=== PATIENT | male | born 1950 | race Caucasian/White ===

== ENCOUNTER 2019-10-10 16:30 | Inpatient (IN) | payer OTHER ==
[~2019-10-10] VITALS: Ht 177.8 cm; Wt 87.7 kg
[~2019-10-10 16:30] MED LIST: FLUV50 PO; METO50 PO; MULVITMIND PO; OMEP20ER PO; VITAMIN D3 PO; VITB100 PO; ZOLP10 PO
[2019-10-10] MEDS ORDERED: ATEN25 PO (16:44)
[2019-10-10] MEDS ORDERED: ZOLP10 PO (16:44)
[2019-10-10] MEDS ORDERED: HYDPAM50 PO (16:44)
[2019-10-10] MEDS ORDERED: OMEPRAZOLE20 MG PO (16:45)
[2019-10-10] MEDS ORDERED: TRAZ50 PO (16:45)
[2019-10-10 17:10] LABS: BASOPHILS ABSOLUTE AUTO 0.06 K/mm3 (0.00-0.23); BASOPHILS PERCENT AUTO 1 % (0-2); EOSINOPHILS ABSOLUTE AUTO 0.14 K/mm3 (0.00-0.68); EOSINOPHILS PERCENT AUTO 1 % (0-6); Hematocrit 43.8 % (37.0-53.0); Hemoglobin 15.6 g/dL (13.5-17.5); IMMATURE GRAN ABSOLUTE AUTO 0.06 K/mm3 (0.00-0.10); IMMATURE GRAN PERCENT AUTO 1 % (0-1); LYMPHOCYTES ABSOLUTE AUTO 3.85 K/mm3 (0.84-5.20); LYMPHOCYTES PERCENT AUTO 39 % (21-46); MONOCYTES PERCENT AUTO 5 % (4-13); Mean Corpuscular HGB 31.2 pg (26.0-34.0); Mean Corpuscular HGB Conc 35.6 g/dL (31.5-36.5); Mean Corpuscular Volume 88 fL (80-100); Mean Platelet Volume 9.9 fL (9.1-12.4); NEUTROPHILS PERCENT AUTO 54 % (41-73); Platelet Count 271 K/mm3 (150-400); RDW Coefficient Variation 12.7 % (11.7-14.2); RDW Standard Deviation 40.8 fL (35.1-46.3); White Blood Cell Count 9.91 K/mm3 (4.00-11.30)
[2019-10-10 17:33] LABS: Alanine Aminotransfer (ALT/SGP 25 U/L (12-78); Albumin, Blood 3.4 g/dL (3.4-5.0); Albumin/Globulin Ratio 0.9 (0.8-1.8); Alk Phos 75 U/L (50-136); Anion Gap 12 mmol/L (6-16); Aspartate Aminotrans (AST/SGOT 27 U/L (12-37); Bilirubin, Total 0.4 mg/dL (0.1-1.0); Blood Urea Nitrogen 11 mg/dL (8-24); Bun/Creatinine Ratio 11.8 (12.0-20.0); CO2, Blood 23 mmol/L (21-32); Calcium, Blood 8.1 mg/dL (8.5-10.1); Chloride, Blood 103 mmol/L (98-108); Creatinine, Blood 0.93 mg/dL (0.60-1.20); Ethanol (Alcohol), Blood, Med 289 mg/dL; Globulin, Blood 3.7 g/dL (2.2-4.0); Glomerular Filtration Rate >60 (60-); Glucose, Blood 106 mg/dL (70-99); Sodium, Blood 138 mmol/L (136-145); Total Protein, Blood 7.1 g/dL (6.4-8.2)
[2019-10-10] MEDS ORDERED: CENTRUM SILVER1 EAC2 PO (20:14)
--- NOTE | 2019-10-11 04:50 | NUR ---
SHIFT SUMMARY: VSS. AFEB. A/O X 4. MAKES NEEDS KNOWN. PT WOKE UP IN THE NIGHT TO VOID. STOOD UP AT BEDSIDE AND FELL ONTO BED. THEN STOOD AGAIN AND CONTINUED TO BE UNSTABLE, REQUIRING STAFF TO PROVED CONTACT ASSIST TO STABIILZE STANCE WHILE PT VOIDED IN URINAL. BED ALARM ON DUE TO APPARENT DISORIENTATION TO OWN ABILITY. CIWA SCORES RANGING FROM 7-12. ATIVAN ADMINISTERED WITH GOOD EFFECT. BED LOW, CALL BUTTON EXPLAINED AND PLACED WITHIN REACH. SLEPT THROUGH MUCH OF THE NIGHT.
[2019-10-11 05:41] LABS: Anion Gap 9 mmol/L (6-16); Blood Urea Nitrogen 11 mg/dL (8-24); CO2, Blood 24 mmol/L (21-32); Calcium, Blood 8.4 mg/dL (8.5-10.1); Chloride, Blood 106 mmol/L (98-108); Creatinine, Blood 0.91 mg/dL (0.60-1.20); Glomerular Filtration Rate >60 (60-); Glucose, Blood 96 mg/dL (70-99); Potassium, Blood 3.4 mmol/L (3.5-5.5); Sodium, Blood 139 mmol/L (136-145)
--- NOTE | 2019-10-11 18:50 | NUR ---
PT IS A/OX3, PLEASANT AND COOPERATIVE, THE PT IS UP IND IN HIS ROOM, THE PTS CIWA SCORE FOR THIS RN RANGED 7-8 T/O THE DAY, PT WAS MEDICATED WITH LIBRIUM AND ATIVAN, THE PT HAD A MILD HEADACHE T/O THE DAY OTHERWISE DENIED PAIN, PTS IV MILDY INFILTRATED TODAY AND MULTIPLE ATTEMPS WERE MADE BY STAFF TO RESTART, A POWERGLIDE WAS EVENTUALLY INSERTED, PT REPORTED HAVING SOME DIARRHEA THIS AM, CALL LIGHT IN REACH, WILL CONTINUE TO MONITOR AND ASSESS FOR CHANGES
[2019-10-12 05:43] LABS: Anion Gap 8 mmol/L (6-16); Blood Urea Nitrogen 11 mg/dL (8-24); Bun/Creatinine Ratio 13.1 (12.0-20.0); CO2, Blood 26 mmol/L (21-32); Calcium, Blood 8.3 mg/dL (8.5-10.1); Chloride, Blood 106 mmol/L (98-108); Creatinine, Blood 0.84 mg/dL (0.60-1.20); Glomerular Filtration Rate >60 (60-); Glucose, Blood 105 mg/dL (70-99); Phosphorus, Blood 2.8 mg/dL (2.5-4.9); Potassium, Blood 3.3 mmol/L (3.5-5.5); Sodium, Blood 140 mmol/L (136-145)
--- NOTE | 2019-10-12 06:18 | NUR ---
LEAD SHIPPER SUMMARY Patient slept off and on, waking in a sweat "drenched" in bed, tremulous, c/o mild headache all night. In AM, patient wanted to know what time he was to be discharged to [place] today. Explained multiple times overnight that he was here to get through the physically worst (initial) part of his withdrawel before he would be able to safely go to rehab. CIWA scores between 8 and 12 overnight
[2019-10-12] MEDS ORDERED: Nicoderm Cq1 EAC1 TOP (10:12)
[2019-10-12] MEDS ORDERED: CHLO25 PO (10:12)
[2019-10-12] MEDS ORDERED: FOLI1 PO (10:13)
[2019-10-12] MEDS ORDERED: B-1100 M1 PO (10:13)
--- NOTE | 2019-10-12 10:40 | NUR ---
PT DISCHARGED DR. LOPEZ ADVISED THE PT THAT HE SHOULD STAY TODAY WHILE GOUNG THROUGH WITHDRAWL IT WAS FELT THAT HE WAS STILL IN THE WITHDRAWEL, THE PT IS NSTED THAT HE COULD MANAGE AT HOME, DC ORDERS WERE GIVEN, THE PT AND HIS VERBALIZED UNDERSTANDING OF THE DC INSTRUCTIONS, PERSCRIPTIONS WERE FAXED TO [facility] [address] AT THE [facility], AND [facility], THE PT APPEARED TO BE BREATHING EASILY ON RA AT THE TIME OF DC, PT WAS TRANSFERED VIA WHEELCHAIR A/OX3 ACCOMPANIED BY RN AND HIS
== END 2019-10-12 10:36 | disposition home or self-care (01) | DRG 897 ==
LOC: ER 16:30 → MEDS 16:31 → ENPENDDIS 10-12 10:34 → MEDS 10-12 10:36
PROVIDERS: Emergency Medicine; ADMIT Family Medicine
DX: F10.239 Alcohol dependence with withdrawal, unspecified (principal); F10.229 Alcohol dependence with intoxication, unspecified; E87.6 Hypokalemia; K21.9 Gastro-esophageal reflux disease without esophagitis; F41.9 Anxiety disorder, unspecified; I10 Essential (primary) hypertension; G47.33 Obstructive sleep apnea (adult) (pediatric); F17.210 Nicotine dependence, cigarettes, uncomplicated; F42.9 Obsessive-compulsive disorder, unspecified
CPT/HCPCS: 36415; 71045; 80048; 80053; 80069; 85025; 96365; 96366; 96375; 96376; 99285-25; C1751; G0378; G0480; J2060; J3411; J3475; J7042

== ENCOUNTER 2019-11-30 12:08 | Emergency (ER) | payer OTHER ==
[~2019-11-30] VITALS: Ht 172.7 cm; Wt 90.7 kg
[~2019-11-30 12:08] MED LIST changes: +ATEN25 PO; +B-1100 M1 PO; +CENTRUM SILVER1 EAC2 PO; +CHLO25 PO; +FOLI1 PO; +HYDPAM50 PO; +NICO21TP TOP; +OMEPRAZOLE20 MG PO; +TRAZ50 PO
[2019-11-30 12:38] LABS: BASOPHILS ABSOLUTE AUTO 0.08 K/mm3 (0.00-0.23); BASOPHILS PERCENT AUTO 1 % (0-2); EOSINOPHILS ABSOLUTE AUTO 0.29 K/mm3 (0.00-0.68); EOSINOPHILS PERCENT AUTO 3 % (0-6); Hematocrit 42.4 % (37.0-53.0); Hemoglobin 15.3 g/dL (13.5-17.5); IMMATURE GRAN ABSOLUTE AUTO 0.04 K/mm3 (0.00-0.10); IMMATURE GRAN PERCENT AUTO 0 % (0-1); LYMPHOCYTES PERCENT AUTO 47 % (21-46); MONOCYTES ABSOLUTE AUTO 0.42 K/mm3 (0.16-1.47); MONOCYTES PERCENT AUTO 5 % (4-13); Mean Corpuscular HGB 30.5 pg (26.0-34.0); Mean Corpuscular HGB Conc 36.1 g/dL (31.5-36.5); Mean Corpuscular Volume 85 fL (80-100); Mean Platelet Volume 9.6 fL (9.1-12.4); NEUTROPHILS ABSOLUTE AUTO 4.16 K/mm3 (1.96-9.15); NEUTROPHILS PERCENT AUTO 44 % (41-73); Platelet Count 271 K/mm3 (150-400); Red Blood Cell Count 5.01 M/mm3 (4.30-5.90); White Blood Cell Count 9.39 K/mm3 (4.00-11.30)
[2019-11-30 13:00] LABS: Alanine Aminotransfer (ALT/SGP 23 U/L (12-78); Albumin, Blood 3.5 g/dL (3.4-5.0); Albumin/Globulin Ratio 0.9 (0.8-1.8); Alk Phos 72 U/L (50-136); Anion Gap 8 mmol/L (6-16); Aspartate Aminotrans (AST/SGOT 27 U/L (12-37); Bilirubin, Total 0.4 mg/dL (0.1-1.0); Blood Urea Nitrogen 16 mg/dL (8-24); Bun/Creatinine Ratio 17.1 (12.0-20.0); CO2, Blood 25 mmol/L (21-32); Calcium, Blood 8.2 mg/dL (8.5-10.1); Chloride, Blood 104 mmol/L (98-108); Creatinine, Blood 0.94 mg/dL (0.60-1.20); Ethanol (Alcohol), Blood, Med 308 mg/dL; Globulin, Blood 3.7 g/dL (2.2-4.0); Glomerular Filtration Rate >60 (60-); Glucose, Blood 103 mg/dL (70-99); Potassium, Blood 3.1 mmol/L (3.5-5.5); Sodium, Blood 137 mmol/L (136-145); Total Protein, Blood 7.2 g/dL (6.4-8.2); Troponin I <0.015 ng/mL (0.000-0.040)
[2019-11-30 13:02] LABS: International Normalized Ratio 1.03
== END 2019-11-30 13:02 | disposition left against medical advice (07) ==
LOC: ER 12:08
PROVIDERS: Emergency Medicine; Physician Assistant
DX: Z53.21 Procedure and treatment not carried out due to patient leaving prior to being seen by health care provider (principal)
CPT/HCPCS: 36415; 80053; 83735; 84484; 85025; 85610; 85730; 93005; 93010; G0480; J3411; J3475; J7042

== ENCOUNTER 2019-12-01 23:54 | Inpatient (IN) | payer OTHER ==
[~2019-12-01] VITALS: Ht 175.3 cm; Wt 85.8 kg
[2019-12-02 01:38] LABS: BASOPHILS ABSOLUTE AUTO 0.08 K/mm3 (0.00-0.23); BASOPHILS PERCENT AUTO 0 % (0-2); EOSINOPHILS PERCENT AUTO 0 % (0-6); Hematocrit 46.3 % (37.0-53.0); Hemoglobin 16.6 g/dL (13.5-17.5); IMMATURE GRAN ABSOLUTE AUTO 0.11 K/mm3 (0.00-0.10); IMMATURE GRAN PERCENT AUTO 1 % (0-1); LYMPHOCYTES ABSOLUTE AUTO 3.64 K/mm3 (0.84-5.20); LYMPHOCYTES PERCENT AUTO 19 % (21-46); MONOCYTES ABSOLUTE AUTO 0.74 K/mm3 (0.16-1.47); MONOCYTES PERCENT AUTO 4 % (4-13); Mean Corpuscular HGB 30.9 pg (26.0-34.0); Mean Corpuscular HGB Conc 35.9 g/dL (31.5-36.5); Mean Corpuscular Volume 86 fL (80-100); Mean Platelet Volume 9.7 fL (9.1-12.4); NEUTROPHILS ABSOLUTE AUTO 15.12 K/mm3 (1.96-9.15); NEUTROPHILS PERCENT AUTO 77 % (41-73); Platelet Count 292 K/mm3 (150-400); RDW Coefficient Variation 12.2 % (11.7-14.2); Red Blood Cell Count 5.37 M/mm3 (4.30-5.90); White Blood Cell Count 19.69 K/mm3 (4.00-11.30)
[2019-12-02 01:57] LABS: Alanine Aminotransfer (ALT/SGP 41 U/L (12-78); Albumin/Globulin Ratio 0.9 (0.8-1.8); Alk Phos 88 U/L (50-136); Anion Gap 22 mmol/L (6-16); Aspartate Aminotrans (AST/SGOT 98 U/L (12-37); Bilirubin, Total 0.9 mg/dL (0.1-1.0); Blood Urea Nitrogen 17 mg/dL (8-24); CO2, Blood 21 mmol/L (21-32); Calcium, Blood 9.6 mg/dL (8.5-10.1); Chloride, Blood 97 mmol/L (98-108); Creatinine, Blood 1.13 mg/dL (0.60-1.20); Ethanol (Alcohol), Blood, Med 149 mg/dL; Globulin, Blood 4.5 g/dL (2.2-4.0); Glomerular Filtration Rate >60 (60-); Glucose, Blood 109 mg/dL (70-99); Potassium, Blood 3.1 mmol/L (3.5-5.5); Sodium, Blood 140 mmol/L (136-145); Total Protein, Blood 8.5 g/dL (6.4-8.2)
[2019-12-02] MEDS ORDERED: ACET500 PO (02:01)
[2019-12-02] MEDS ORDERED: ALBU90OI INH (02:01)
[2019-12-02] MEDS ORDERED: Artificial Tear15 ML BOTHEYES (02:04)
[2019-12-02] MEDS ORDERED: LUBRICANT EYE15 ML BOTHEYES (02:04)
[2019-12-02] MEDS ORDERED: FISH OIL 1,0001 EACH PO (02:05)
[2019-12-02] MEDS ORDERED: ARNUITY ELLIPT50 MCG INH (02:06)
[2019-12-02] MEDS ORDERED: GABA300 PO (02:07)
[2019-12-02] MEDS ORDERED: GABA100 PO (02:07)
[2019-12-02] MEDS ORDERED: HYDPAM50 PO (02:09)
[2019-12-02] MEDS ORDERED: IBUP600 PO (02:09)
--- NOTE | 2019-12-02 04:03 | NUR ---
transfer report from Lesia ROBIN in ER on [facility] PT being admitted with ETOH Withdrawl & hx of withdrawl seizures and desire for detox. PT has been medicated for CIWA of 8 to 10 and will continue CIWA. Has recieved IVF bolus and has banana bag running. Will be OBS PT and on tele monitor. Seizure and fall precautions. await admission.
--- NOTE | 2019-12-02 04:56 | NUR ---
PROCESS SERVER INSERTED IV RT AC 18 G PATENT AND INFUSING IN ADMIT TO MEDICAL FLOOR
[2019-12-02] MEDS ORDERED: Trazodone HCl300 MG PO (05:29)
[2019-12-02] MEDS ORDERED: FISH OIL 1,001000 MG PO (05:31)
[2019-12-02 05:53] LABS: Anion Gap 19 mmol/L (6-16); Blood Urea Nitrogen 15 mg/dL (8-24); CO2, Blood 17 mmol/L (21-32); Calcium, Blood 8.4 mg/dL (8.5-10.1); Chloride, Blood 100 mmol/L (98-108); Creatinine, Blood 0.94 mg/dL (0.60-1.20); Glomerular Filtration Rate >60 (60-); Glucose, Blood 116 mg/dL (70-99); Potassium, Blood 3.1 mmol/L (3.5-5.5); Sodium, Blood 136 mmol/L (136-145)
--- NOTE | 2019-12-02 07:26 | NUR ---
69 YEAR OLD [facility] SERVICE CONNECTED DISABILITY STATED. HX OF ANXIETY ADmitted for etoh withdrawl and CIWA score 8 on arrival to unit an 11 this AM. Medicated for nausea and with librium 50 mg with helpful effect. PT to Fatou and she is not present. PT poor historian and unable to verify current med list. Has banana bag infusing and unable to tolerate diet currently. Completed 28 day inpt rehab for ETOH Sunday and reportedly drinking 3 pints vodka daily since shortly after dc. Hx of seizure 7 years ago with ETOH detox requiring induced coma. Seizure precautions in place. RUBENS RT notified of home cpap use. Asked PT to remind to bring. Continue to assess tele monitor full code status verified.
[2019-12-02] MEDS ORDERED: ATECHL PO (16:37)
[2019-12-02] MEDS ORDERED: ARTIFICIAL TEAR15 M1 BOTHEYES (16:38)
[2019-12-02] MEDS ORDERED: Flonase 0.05% N16 GM (16:39)
[2019-12-02] MEDS ORDERED: Hydroxyzine HCl50 MG PO ×2 (16:42→16:43)
[2019-12-02] MEDS ORDERED: MELA3 PO (16:44)
[2019-12-02] MEDS ORDERED: NICOTINE LOZENGE4 MG PO (16:45)
[2019-12-02] MEDS ORDERED: SELENIUM SULFI120 ML TOP (16:46)
--- NOTE | 2019-12-02 18:02 | NUR ---
SHIFT SUMMARY PATIENT MEDICATED PER CIWA SCALE FOR WITHDRAWAL SYMPTOMS SEVERAL TIMES THIS SHIFT. CIWA'S RANGING FROM 6 TO 10 TODAY. PATIENT REPORTS ABDOMEN TENDER WHEN PALPATED IN EPIGASTRIC AREA. DENIES DIFFIUCLTY BREATHING. PATIENT UP SBA TO BATHROOM. PATIENT NAPPING OFF AND ON DURING DAY. CALL LIGHT IN REACH.
--- NOTE | 2019-12-03 02:14 | NUR ---
69 year old Male continues with alcohol withdrawl with no medication for withdrawl yet this shift per withdrawl scores. He did have PRN trazadone 150 mg at HS and he has been resting. He does not use cpap consistantly removes frequently . No seizure activity noted.
[2019-12-03 05:04] LABS: BASOPHILS ABSOLUTE AUTO 0.04 K/mm3 (0.00-0.23); BASOPHILS PERCENT AUTO 0 % (0-2); EOSINOPHILS ABSOLUTE AUTO 0.06 K/mm3 (0.00-0.68); EOSINOPHILS PERCENT AUTO 1 % (0-6); Hematocrit 39.9 % (37.0-53.0); IMMATURE GRAN ABSOLUTE AUTO 0.03 K/mm3 (0.00-0.10); IMMATURE GRAN PERCENT AUTO 0 % (0-1); LYMPHOCYTES ABSOLUTE AUTO 2.34 K/mm3 (0.84-5.20); LYMPHOCYTES PERCENT AUTO 26 % (21-46); MONOCYTES ABSOLUTE AUTO 0.81 K/mm3 (0.16-1.47); MONOCYTES PERCENT AUTO 9 % (4-13); Mean Corpuscular HGB 30.8 pg (26.0-34.0); Mean Corpuscular HGB Conc 35.1 g/dL (31.5-36.5); Mean Corpuscular Volume 88 fL (80-100); NEUTROPHILS ABSOLUTE AUTO 5.85 K/mm3 (1.96-9.15); NEUTROPHILS PERCENT AUTO 64 % (41-73); Platelet Count 177 K/mm3 (150-400); RDW Coefficient Variation 12.1 % (11.7-14.2); RDW Standard Deviation 39.1 fL (35.1-46.3); Red Blood Cell Count 4.54 M/mm3 (4.30-5.90); White Blood Cell Count 9.13 K/mm3 (4.00-11.30)
[2019-12-03 05:34] LABS: Anion Gap 5 mmol/L (6-16); Blood Urea Nitrogen 18 mg/dL (8-24); Bun/Creatinine Ratio 19.4 (12.0-20.0); CO2, Blood 31 mmol/L (21-32); Calcium, Blood 8.5 mg/dL (8.5-10.1); Chloride, Blood 103 mmol/L (98-108); Creatinine, Blood 0.93 mg/dL (0.60-1.20); Glomerular Filtration Rate >60 (60-); Glucose, Blood 132 mg/dL (70-99); Potassium, Blood 3.2 mmol/L (3.5-5.5); Sodium, Blood 139 mmol/L (136-145)
--- NOTE | 2019-12-03 18:28 | NUR ---
SHIFT SUMMARY PATIENT GIVEN LIBRIUM X1 FOR WITHDRAWAL SYMPTOMS. PATIENT REPORTS FEELING MUCH BETTER TODAY. PATIENT UP SBA TO BATHROOM. PATIENT AMBULATED IN HALLWAY WITH STAFF THIS AFTERNOON. PATIENT GIVEN MAALOX X1 FOR REFLUX/EPIGASTRIC PAIN. CALL LIGHT IN REACH.
--- NOTE | 2019-12-04 07:25 | NUR ---
SHIFT SUMMARY PATIENT ALERT AND ORIENTED. HAD A CIWA SCORE OF 13 AT BEGINNING OF SHIFT AND WAS MEDICATED WITH LIBRIUM PER EMAR. PATIENT HAD NO ADDITIONAL COMPLAINTS AND SLEPT THE REST OF THE NIGHT. IV PATENT AND FLUSHED. BED IN LOWEST POSITION WITH WHEELS LOCKED. CALL LIGHT WITHIN REACH. REPORT GIVEN TO ONCOMING RN.
[2019-12-04] MEDS ORDERED: CHLO25 PO (08:56)
[2019-12-04] MEDS ORDERED: ATEN25 PO (08:57)
--- NOTE | 2019-12-04 11:24 | NUR ---
PT AOX4 AND COOPERATIVE WITH CARE. PT WITHDRAWAL SYMTOMS ARE STABLE AND PT STATES SHE IS READY TO GO. PT IS INDEPENDENT IN ROOM. PT DOES HAVE SOME ANXIETY AND WAS TREATED PER EMAR. ALL PERSONAL BELONGINGS ARE WITH PT AND TO TRANSPORT. MEDICATIONS FAXED AND HARDSCRIPT SENT WITH PT. IV REMOVED PRIOR TO DISCHARGE. PT ESCORTED OUT VIA WHEEL CHAIR BY VOLUNTEER.
== END 2019-12-04 11:33 | disposition home or self-care (01) | DRG 897 ==
LOC: ER 23:54 → MEDS 23:55 → ENPENDDIS 12-04 08:30 → MEDS 12-04 11:33
PROVIDERS: Emergency Medicine; Internal Medicine; ADMIT Internal Medicine
DX: F10.239 Alcohol dependence with withdrawal, unspecified (principal); R65.10 Systemic inflammatory response syndrome (SIRS) of non-infectious origin without acute organ dysfunction; E87.6 Hypokalemia; F17.210 Nicotine dependence, cigarettes, uncomplicated; I10 Essential (primary) hypertension; K21.9 Gastro-esophageal reflux disease without esophagitis; G47.30 Sleep apnea, unspecified
CPT/HCPCS: 36415; 80048; 80053; 83690; 85025; 94640; 94762; 96361; 96365; 96366; 96372; 96375; 96376; 99285-25; A9270; A9270-GY; G0378; G0480; J1650; J2060; J2405; J3411; J3475; J7030; J7042

== ENCOUNTER 2020-03-07 12:54 | Emergency (ER) | payer OTHER ==
[~2020-03-07] VITALS: Ht 177.8 cm; Wt 90.7 kg
[~2020-03-07 12:54] MED LIST changes: +ACET500 PO; +ALBU90OI INH; +ARNUITY ELLIPT50 MCG INH; +ARTIFICIAL TEAR15 M1 BOTHEYES; +ATECHL PO; +Artificial Tear15 ML BOTHEYES; +FISH OIL 1,0001 EACH PO; +FISH OIL 1,001000 MG PO; +Flonase 0.05% N16 GM; +GABA100 PO; +GABA300 PO; +Hydroxyzine HCl50 MG PO; +IBUP600 PO; +LUBRICANT EYE15 ML BOTHEYES; +MELA3 PO; +NICOTINE LOZENGE4 MG PO; +SELENIUM SULFI120 ML TOP; +Trazodone HCl300 MG PO
[2020-03-07 14:32] LABS: Hematocrit 43.7 % (37.0-53.0); Hemoglobin 15.2 g/dL (13.5-17.5); Mean Corpuscular HGB 30.5 pg (26.0-34.0); Mean Corpuscular HGB Conc 34.8 g/dL (31.5-36.5); Mean Corpuscular Volume 88 fL (80-100); RDW Coefficient Variation 13.1 % (11.7-14.2); RDW Standard Deviation 41.7 fL (35.1-46.3); Red Blood Cell Count 4.99 M/mm3 (4.30-5.90); White Blood Cell Count 15.64 K/mm3 (4.00-11.30)
[2020-03-07 14:54] LABS: Acetaminophen, Random 11.9 ug/mL (10.0-30.0); Alanine Aminotransfer (ALT/SGP 36 U/L (12-78); Albumin, Blood 3.2 g/dL (3.4-5.0); Albumin/Globulin Ratio 0.9 (0.8-1.8); Alk Phos 76 U/L (50-136); Anion Gap 14 mmol/L (6-16); Aspartate Aminotrans (AST/SGOT 90 U/L (12-37); Bilirubin, Total 0.8 mg/dL (0.1-1.0); Blood Urea Nitrogen 14 mg/dL (8-24); CO2, Blood 17 mmol/L (21-32); Calcium, Blood 8.5 mg/dL (8.5-10.1); Chloride, Blood 112 mmol/L (98-108); Creatinine, Blood 0.78 mg/dL (0.60-1.20); Ethanol (Alcohol), Blood, Med 168 mg/dL; Globulin, Blood 3.6 g/dL (2.2-4.0); Glomerular Filtration Rate >60 (60-); Glucose, Blood 104 mg/dL (70-99); Potassium, Blood 4.2 mmol/L (3.5-5.5); Salicylate <1.7 mg/dL (2.8-20.0); Sodium, Blood 143 mmol/L (136-145); Total Protein, Blood 6.8 g/dL (6.4-8.2); Troponin I <0.015 ng/mL (0.000-0.040)
[2020-03-08] MEDS ORDERED: CHLO25 PO (12:53)
== END 2020-03-07 23:04 | disposition home or self-care (01) ==
LOC: ER 12:54
PROVIDERS: Emergency Medicine
DX: F10.129 Alcohol abuse with intoxication, unspecified (principal); I10 Essential (primary) hypertension; K21.9 Gastro-esophageal reflux disease without esophagitis; E11.9 Type 2 diabetes mellitus without complications; F17.210 Nicotine dependence, cigarettes, uncomplicated; Z79.899 Other long term (current) drug therapy; Y90.6 Blood alcohol level of 120-199 mg/100 ml
CPT/HCPCS: 80053; 84484; 85025; 93005; 93010; 96360; 96361; 96372-59; 99285-25; G0480; J0780; J7030; U0002

== ENCOUNTER 2020-03-08 11:31 | Inpatient (IN) | payer OTHER ==
[~2020-03-08] VITALS: Ht 177.8 cm; Wt 87.5 kg
[2020-03-08 12:29] LABS: Source, Urine Clean Catch
[2020-03-08 12:34] LABS: BASOPHILS ABSOLUTE AUTO 0.06 K/mm3 (0.00-0.23); BASOPHILS PERCENT AUTO 0 % (0-2); EOSINOPHILS PERCENT AUTO 0 % (0-6); Hematocrit 44.7 % (37.0-53.0); Hemoglobin 15.2 g/dL (13.5-17.5); IMMATURE GRAN ABSOLUTE AUTO 0.07 K/mm3 (0.00-0.10); IMMATURE GRAN PERCENT AUTO 0 % (0-1); LYMPHOCYTES ABSOLUTE AUTO 2.94 K/mm3 (0.84-5.20); LYMPHOCYTES PERCENT AUTO 17 % (21-46); MONOCYTES ABSOLUTE AUTO 1.36 K/mm3 (0.16-1.47); MONOCYTES PERCENT AUTO 8 % (4-13); Mean Corpuscular HGB 30.1 pg (26.0-34.0); Mean Corpuscular Volume 89 fL (80-100); Mean Platelet Volume 9.9 fL (9.1-12.4); NEUTROPHILS ABSOLUTE AUTO 12.81 K/mm3 (1.96-9.15); NEUTROPHILS PERCENT AUTO 74 % (41-73); Platelet Count 244 K/mm3 (150-400); RDW Coefficient Variation 12.7 % (11.7-14.2); RDW Standard Deviation 41.5 fL (35.1-46.3); Red Blood Cell Count 5.05 M/mm3 (4.30-5.90); White Blood Cell Count 17.24 K/mm3 (4.00-11.30)
[2020-03-08 12:45] LABS: Bilirubin, Urine Neg (Neg); Blood, Urine 3+ (Neg); Glucose Qualitative, Urine Neg (Neg); Ketones, Urine 3+ (Neg); Leukocyte Esterase, Urine Neg (Neg); Nitrite, Urine Neg (Neg); Protein, Urine 2+ (Neg); Urobilinogen, Urine NORM (Normal)
[2020-03-08 12:50] LABS: Alanine Aminotransfer (ALT/SGP 41 U/L (12-78); Albumin, Blood 3.3 g/dL (3.4-5.0); Albumin/Globulin Ratio 0.9 (0.8-1.8); Alk Phos 80 U/L (50-136); Anion Gap 17 mmol/L (6-16); Aspartate Aminotrans (AST/SGOT 97 U/L (12-37); Bilirubin, Total 0.9 mg/dL (0.1-1.0); Blood Urea Nitrogen 14 mg/dL (8-24); Bun/Creatinine Ratio 16.3 (12.0-20.0); CO2, Blood 17 mmol/L (21-32); Calcium, Blood 8.4 mg/dL (8.5-10.1); Chloride, Blood 105 mmol/L (98-108); Creatinine, Blood 0.86 mg/dL (0.60-1.20); Globulin, Blood 3.8 g/dL (2.2-4.0); Glomerular Filtration Rate >60 (60-); Glucose, Blood 99 mg/dL (70-99); Potassium, Blood 3.4 mmol/L (3.5-5.5); Sodium, Blood 139 mmol/L (136-145); Total Protein, Blood 7.1 g/dL (6.4-8.2)
[2020-03-08] MEDS ORDERED: CHLO25 PO (12:53)
[2020-03-08 12:59] LABS: Ethanol (Alcohol), Blood, Med 142 mg/dL; Salicylate <1.7 mg/dL (2.8-20.0)
[2020-03-08 12:59] LABS: Appearance, Urine Clear (Clear); Bacteria Not Seen /hpf; Color, Urine Pale Yellow (P-Yellow); Red Blood Cells, Urine 0-2 /hpf (0-2); Squamous Epithelial Cells Not Seen /hpf (Few); White Blood Cells, Urine Not Seen /hpf (0-5)
[2020-03-08 13:01] LABS: Thyroid Stimulating Hormone 0.655 uIU/mL (0.360-4.800)
[2020-03-08 13:02] LABS: U Amphetamine Screen Not Detected; U Barbituate Screen Not Detected; U Benzodiazapine Screen DETECTED; U Buprenorphine Screen Not Detected; U Cannabinoids Screen Not Detected; U Cocaine Screen Not Detected; U Methadone Screen Not Detected; U Methamphetamine Screen Not Detected; U Opiates Screen Not Detected; U Oxycodone Screen Not Detected; U Phencyclidine Screen Not Detected; U Propoxyphene Screen Not Detected
[2020-03-08 13:02] LABS: Acetaminophen, Random <2.0 ug/mL (10.0-30.0)
--- NOTE | 2020-03-08 18:36 | NUR ---
1755 PT ADMITTED TO ICU-2 VIA STRETCHER. PT IS A/O, COOP. HAS ONLY ONE IV IN L FOOT AND 2ND WAS PLACE PER GUSTAVO ROBIN IN L AC. PT HAS TREMORS, IS SL NAUSEATED, GUILLERMO. AND IS C/O L FOOT PAIN PROB. RELATED TO IV SITE. PT LUNGS ARE CLEAR. HE HAS NO CURRENT SOB ON RA BUT STATES HE WAS RECENTLY DX WITH EMPHYSEMA AND CONT A DAILY 1 PACK SMOKER. BT ARE HYPERACTIVE WITH SL TEMPANIC SOUNDING. PT STATES HE HAS HAD A BM AND VOIDED IN ED THIS SHIFT. SEE CIWA SCORE. PT IS ON RA WITH SATS 91-[address] WITH VSS AND DENIES RESP DISTRESS. WILL REPORT TO NOC SHIFT.
--- NOTE | 2020-03-08 22:07 | NUR ---
ASSUMPTION OF CARE ASSUMED CARE OF PT @ 1900, PT AWAKE IN BED, ORIENTED TO SELF, LOCATION, EVENT, AND FOLLOWING DIRECTIONS. CIWA 10, MEDICATED WITH ATIVAN AND LIBRIUM. PT DENIES SI OR THOUGHTS OF SELF HARM IN THE PAST 30 DAYS. O2 SATURATIONS 94% ON RA, MONITOR SHOWS SINUS RHYTHM WITH HR 90'S, INCREASED WITH ACTIVITY TO 120'S, BP STABLE. PT STS MIDSTERNAL CP WITH BURNING THAT GOES INTO THROAT, SOME NAUSEA, MEDICATED WITH ZORFRAN AND PT REPORTS DECREASED BURNING SENSATION. RED RASH NOTED TO BLE FROM FOOT TO UPPER THIGH, PT REPORTS NO ITCHING OR PAIN WITH RASH. PT IMPULSIVE AT TIMES, WANTING TO GET OUT OF BED TO GO SMOKE A CIGARETTE, EDUCATED PT ON NEED TO STAY IN THE ICU, PT REDIRECTABLE. PT WITH ONE IV IN THE L FOOT, FLUSHES WELL, THIAMINE INFUSION STARTED @ 50ml/hr DUE TO LOCATION OF IV. SPOKE WITH SHARIF JOHNSON NP REGARDING THIAMINE INFUSION @ SLOWER RATE AND PTS DENIAL OF SI, PT SI SCREEN CONSIDERED NEGATIVE AT THIS TIME, NO NEW ORDERS. EDA ROBIN IN TO START POWERGLIDE, PT TOLERATED VERY POORLY, BECAME VERY AGITATED, NOT FOLLOWING DIRECTIONS, MILD TREMORS NOTED, ATIVAN ADMINISTERED WITH GOOD EFFECT. POWERGLIDE TO [facility], TRANSFERED THIAMINE INFUSION TO PG @ 200ml/hr. PT CURRENTLY RESTING IN BED, REPOSITIONS SELF IN BED, CALL LIGHT WITHIN REACH.
[2020-03-09 06:05] LABS: BASOPHILS ABSOLUTE AUTO 0.04 K/mm3 (0.00-0.23); BASOPHILS PERCENT AUTO 0 % (0-2); EOSINOPHILS ABSOLUTE AUTO 0.08 K/mm3 (0.00-0.68); EOSINOPHILS PERCENT AUTO 1 % (0-6); Hematocrit 38.2 % (37.0-53.0); Hemoglobin 13.1 g/dL (13.5-17.5); IMMATURE GRAN ABSOLUTE AUTO 0.03 K/mm3 (0.00-0.10); IMMATURE GRAN PERCENT AUTO 0 % (0-1); LYMPHOCYTES ABSOLUTE AUTO 2.47 K/mm3 (0.84-5.20); LYMPHOCYTES PERCENT AUTO 27 % (21-46); MONOCYTES ABSOLUTE AUTO 0.76 K/mm3 (0.16-1.47); MONOCYTES PERCENT AUTO 8 % (4-13); Mean Corpuscular HGB 30.5 pg (26.0-34.0); Mean Corpuscular HGB Conc 34.3 g/dL (31.5-36.5); Mean Corpuscular Volume 89 fL (80-100); Mean Platelet Volume 10.2 fL (9.1-12.4); NEUTROPHILS ABSOLUTE AUTO 5.64 K/mm3 (1.96-9.15); NEUTROPHILS PERCENT AUTO 63 % (41-73); Platelet Count 175 K/mm3 (150-400); RDW Coefficient Variation 12.5 % (11.7-14.2); White Blood Cell Count 9.02 K/mm3 (4.00-11.30)
[2020-03-09 06:21] LABS: Anion Gap 5 mmol/L (6-16); Blood Urea Nitrogen 15 mg/dL (8-24); Bun/Creatinine Ratio 16.3 (12.0-20.0); CO2, Blood 28 mmol/L (21-32); Calcium, Blood 7.9 mg/dL (8.5-10.1); Chloride, Blood 108 mmol/L (98-108); Creatinine, Blood 0.92 mg/dL (0.60-1.20); Glomerular Filtration Rate >60 (60-); Glucose, Blood 108 mg/dL (70-99); Magnesium, Blood 2.2 mg/dL (1.6-2.4); Potassium, Blood 3.4 mmol/L (3.5-5.5); Sodium, Blood 141 mmol/L (136-145)
--- NOTE | 2020-03-09 07:20 | NUR ---
SHIFT SUMMARY PT SLEPT T/O SHIFT, REMAINS AROUSABLE BUT QUICKLY FALLS BACK TO SLEEP. O2 DESATURATIONS WHILE SLEEPING TO 86% WITH QUICK RECOVER, MULTIPLE ATTEMPTS TO PLACE O2 PER NC, PT TOLERATED FOR SHORT PERIODS AND THEN REMOVED NC, OTHER VITAL SIGNS STABLE. NO URINE OUTPUT THIS SHIFT, PT DENIED NEED TO VOID THIS AM. PT MOHR AND REPOSITIONS SELF IN BED. REPORT GIVEN TO GUANACO ROBIN.
--- NOTE | 2020-03-09 07:30 | NUR ---
ASSUMED CARE PT IS SLEEPING AND SNORING. HE IS EASILY AROUSABLE BUT QUICKLY GOES BACK TO SLEEP. BLOOD PRESSURE IS SLIGHTLY LOW AT 93/42 WITH 02 SAT AT 86. PT DENIES EEDING TO URINATE. PT IS A/OX3 BUT THOUGHT HE WAS AT THE [place]. NO PUMPS ARE RUNNING. NO FUIRTHER NEEDS OR CONCERNS AT THIS TIME.
--- NOTE | 2020-03-09 09:10 | NUR ---
PT UNABLE TO URINATE. BLADDER SCAN SHOWED 350ML IN BLADDER. DR. MARTELL ORDERED STRAIGHT CATH. STRAIGHT CATH PLACED AND 450ML VOIDED FROM BLADDER.
--- NOTE | 2020-03-09 09:32 | NUR ---
SPOKE WITH PT'S , MANAN, SHE SAID THAT SHE WILL DROP OFF THE PT'S HOME CPAP AT THE PT ENTRANCE TENT AT SOME POINT TODAY.
--- NOTE | 2020-03-09 09:40 | NUR ---
REVIEWED STUDENT NURSES'S HEAD TO TOE ASSESSMENT. WOULD ADD THAT PT IS ON CARDIAC MONITORING WITH RHYTHM NSR IN 90S, HAS WOLF JOHNSTON ORDERED BUT HAS BEEN REFUSING, AND IS CONFUSED BUT REORIENTABLE.
--- NOTE | 2020-03-09 12:02 | NUR ---
DR. MARTELL INSTRUCTED TO GIVE ATENOLOL DUE TO PT BEING TACHY IN 150'S WHILE EATING. ATENOLOL GIVEN. IV ON LEFT FOOT REMOVED. PT IS MORE ALERT THIS AFTERNOON.
--- NOTE | 2020-03-09 16:57 | NUR ---
Augustus is known to me from previous hospitalizations. I recieved a t/c from spouse's son with concern that Augustus was "trying to leave AMA." I met with Augustus. He tended to talk in circles and apeared tired/weak. At one point he said "I might just drink myself to ." He has been sober for 6 years until a few months ago. He was active in AA wile sober, but did not participate in 12-step work. I provided gentle correctional counselor/case manager and encouragement. He really did not appear able to engage much today. I informed RN of family's concern. I will continue to meet with Augustus as schedule permits.
--- NOTE | 2020-03-09 17:29 | NUR ---
ICU TRANSFER- PT ARRIVED TO ROOM 344 FROM ICU 2 VIA W/C AT 1715. PT A/O TO PERSON AND PLACE. PT DENIES ANY COMPLAINTS. LS CLEAR, ON RA. 1 ASSIST INTO CHAIR. PT ORIENTED TO ROOM AND CALL SYSTEM, CALL LIGHT IN REACH AND CHAIR ALARM ON.
--- NOTE | 2020-03-09 17:30 | NUR ---
REPORT WAS GIVEN TO GEORGE ON MEDICAL FLOOR. PENDING [facility]. PT'S MEAL TRAY WENT WITH HIM UPON TRANSFER TO THE MED FLOOR. CPAP ORDER ENTERED FOR RT TO BRING TO ROOM. GEORGE IS AWARE OF TELE ORDER.
--- NOTE | 2020-03-09 19:40 | NUR ---
ASSUMED CARE. BRAIN IS ABLE TO ANSWER ALL ORIENTATION QUESTIONS. 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 DOES NOT KNOW WHY HE RELAPSED. STATES HE CAN FIQURE OUT ANY REASON WHY HE PICKED UP THE ALCOHOL. HE WAS HOME ON VACATION FOR SEVERAL WEEKS, WAS NOT ABLE TO GO ANYWHERE, BORED. THATS ALL HE CAN THINK OF WHY HE DID IT. DOES TALK ABOUT NOT DOING IT AGAIN, SAYS HE QUITE ONCE BEFORE AND PLANS ON DOING IT AGAIN. DENIES ANY PROBLEMS. TREAMORS ARE MILD, NO AGGIATIONS OR ANXIETY AT THIS TIME. DRUWA 2. WILL CONTINUE TO MONITOR AND TX. BED ALARM ON, CALL LIGHT IN REACH.
--- NOTE | 2020-03-09 20:37 | NUR ---
ADMINISTERED MEDS. HE HOPES HE CAN SLEEP TONIGHT. STATES HE HAS BAD INSOMNIA. DENIES ANY NEEDS OR WANTS.
--- NOTE | 2020-03-10 00:56 | NUR ---
BED ALARM SOUNDING. PATIENT NEEDING TO USE URINAL. UNABLE TO SIT ON SIDE OF BED ALONE, HE IS VERY TIRED AND SLEEPY. ASSISTED WITH URINAL USE. MANAGER OF DEVELOPMENT TO HELP.
--- NOTE | 2020-03-10 03:01 | NUR ---
BRAIN REFUSES TO WEAR HIS CPAP, CONTINUOUS BIOX SHOWS HE DROPS DOWN TO 86% ON RA SLEEPING. PLACED 4 LITERS OF OXYGEN ON HIM EARLIER AND IT KEEPS HIM UP IN THE 90'S. BUT HE CONTINUES TO PULL IT OFF AND TAKE OFF THE BIOX. HE HAS REMOVED IT SEVERAL TIMES NOW, NOT WANTING IT ON. THEREFORE TURNED OFF THE MACHINE. TOLD HIM HE HAS TO KEEP THE OXYGEN ON, HE SAID OK.
--- NOTE | 2020-03-10 06:00 | NUR ---
SHIFT SUMMARY: 70 Y/O ADMITTED FOR ETOH WITHDRAWLS. MILD TREMORS NOTED AT START OF SHIFT. WAS ORIENTED AT START BUT AFTER TAKING HIS TRAZADONE AND MELATONIN HE GOT VERY DROGGY WHICH MADE HIM SHORT OF CONFUSED. HE WAS EASILY ORIENTED THROUGHOUT THE NIGHT. HE SLEPT WELL. INTAKE WAS 300, OUTPUT 375. ATTEPTED THE USE OF CONTINUOUS BIOX BUT HE CONTINUED TO REMOVE IT IN HIS SLEEP AND DID NOT WANT IT ON. HE REFUSED THE CPAP WHICH HE DOES DROP DOWN TO 86% WHEN SLEEPING. PLACED HIM ON 4 LITERS OF O2 TO KEEP IT UP IN THE 90'S. CIWA'S WERE AROUND 6 BUT DURING THE NIGHT IT DROPPED TO ALMOST 0. NO OTHER CHANGES TO REPORT.
[2020-03-10 06:38] LABS: Albumin, Blood 2.8 g/dL (3.4-5.0); Anion Gap 6 mmol/L (6-16); Blood Urea Nitrogen 11 mg/dL (8-24); CO2, Blood 24 mmol/L (21-32); Chloride, Blood 111 mmol/L (98-108); Creatinine, Blood 0.85 mg/dL (0.60-1.20); Glomerular Filtration Rate >60 (60-); Glucose, Blood 117 mg/dL (70-99); Magnesium, Blood 2.3 mg/dL (1.6-2.4); Phosphorus, Blood 2.4 mg/dL (2.5-4.9); Potassium, Blood 3.8 mmol/L (3.5-5.5); Sodium, Blood 141 mmol/L (136-145)
--- NOTE | 2020-03-10 15:09 | NUR ---
SPOKE WITH SPEED BELT SANDER TENDER AND PT NO LONG[facility]. PT REPORTS HE NO LONGER WANTS TO GO TO [facility] BUT WOULD RATHER GO TO [facility] DUE TO BEING ABLE TO SMOKE THERE. SPEED BELT SANDER TENDER NOTIFIED OF THIS REQUEST. I CALLED SIGNIFICANT OTHER MANAN WITH PT AND UPDATED OF THIS, SHE REPORTS PT HAS WANTED TO GO TO [place] BUT UNSURE IF HE CAN GO, SHE REPORTS SHE HAS A PHONE NUMBER FOR THEM AND WILL CALL [facility].
--- NOTE | 2020-03-10 16:12 | NUR ---
Several visits with Augsutus today. He remains confused, one moment irritable and threatening to leave AMA, the next, pleasant and cooperative. He responded well to encouragement and emotional support. He is being d/c to [place] [facility] rehab this afternoon.
--- NOTE | 2020-03-10 17:24 | NUR ---
SHIFT SUMMARY- PT A/OX3, CONFUSED AT TIMES. PT HAS BEEN PLEASANT AND COOPERATIVE T/O MOST OF THE DAY. CIWA STABLE AT 4 FOR MOST OF THE DAY, CIWA 9 THIS AFTERNOON DUE TO ANXIETY BUT PT REPORTS CHRONIC ANXIETY THAT HE TAKES HYDROXYZINE FOR, PRN HYDROXYZINE ORDERED. PT ABLE TO GET UP AND AMBULATE IN HALLS WITH SBA AND FWW WHICH HELPED. LS CLEAR, ON RA. TELE SR AT 74. PT ANXIOUS TO GET BACK TO [place] FOR ALCOHOL TREATMENT, PT WISHES TO GO TO [place] HOWEVER PT WILL HAVE TO BE DC'D TO [facility] THEN A POSSIBLE TRANSFER TO [place] PER CASE MANAGEMENT. POSSIBLE DISCHARGE TO [place] TOMORROW.
--- NOTE | 2020-03-11 04:15 | NUR ---
CELL POURER SUMMARY AO AT BEGINNING OF SHIFT. DOES NOT USE CALL LIGHT AND IS IMPULSIVE AT TIMES. ENCOURAGED USE OF CALL LIGHT AND FWW W/ STANDBY ASSIST. HE BECAME INCREASINGLY ANXIOUS AROUND 2200 AND CIWA WAS REASSESED AT 10. PRN LIBRIUM WAS GIVEN AND PT WAS ABLE TO REST FOR A BIT. OCCASIONALY WOULD WAKE UP AND ATTEMPT TO GET OUT OF BED WITH SOME CONFUSION BUT WAS EASILY REDIRECTED. HE CURRENTLY APPEARS TO BE SLEEPING WELL WITH BED IN LOWEST POSITION AND CALL LIGHT WITHIN REACH. WILL CONTINUE TO MONITOR AND REPORT TO ONCOMING RN.
--- NOTE | 2020-03-11 17:57 | NUR ---
PT UP AND WALKING IN [place] WITH OT AND PT. WITH AND WITHOUT WALKER. NO C/O PAIN TODAY. HE DID C/O OF DIFFICULTY BREATHING THIS AFTERNOON, RESP TX GIVEN WITHOUT GOOD RESULTS. NO WHEEZING NOTED AND O2 SATS REMAINS IN 90'S. ATARAX FOR ANXIETY GIVEN, PT RELAXED AND NO ADDITIONAL RESP ISSUES REPORTED. NO ACUTE CHANGES NOTED THIS SHIFT, WILL CONTINUE TO MONITOR AND REPORT TO ONCOMING RN
--- NOTE | 2020-03-12 04:06 | NUR ---
QUALITY CONTROL COORDINATOR SUMMARY AO AND COOPERATIVE WITH CARE. APPEARED TO SLEEP WELL T/O NIGHT. ANXIETY HAS GREATLY IMPROVED COMPARED TO THE PRIOR NIGHT. REMAINS IMPULSIVE AT TIMES WHEN GETTING OUT OF BED TO USE RESTROOM. ENCOURAGED USE OF CALL LIGHT AND FWW DUE TO UNSTEADY GAIT. AVERAGE CIWA HAS BEEN 0. VSS. BED IN LOWEST POSITON AND CALL LIGHT WITHIN REACH. WILL CONTINUE TO MONITOR AND REPORT TO ONCOMING RN.
[2020-03-12] MEDS ORDERED: FOLI1 PO (15:12)
[2020-03-12] MEDS ORDERED: B-1100 M1 PO (15:12)
--- NOTE | 2020-03-12 15:36 | NUR ---
PT DISCHARGE PT ANXIOUS AND WANTING TO LEAVE, PUSHING ON DOORS TO EXIT. SECURTIY UP TO ROOM TO TALK WITH PT. DC INSTRUCTIONS REVIEWED WITH PT- PT VERB UNDERSTANDING. THIS RN SPOKE TO ON THE PHONE, SHES ON HER WAY HERE TO PARENT EDUCATOR PT. PT INSTISTANT ON GOING OUTSIDE TO WAIT FOR HER. PERSONAL BELONGINGS WITH PT. THIS RN ACCOMPANIED PT TO HOSPITAL EXIT.
== END 2020-03-12 15:27 | disposition home or self-care (01) | DRG 897 ==
LOC: ER 11:31 → ICUE 11:32 → ICUW 11:32 → ICUE 16:46 → MEDS 03-09 17:15
PROVIDERS: Emergency Medicine; ADMIT Internal Medicine
DX: F10.229 Alcohol dependence with intoxication, unspecified (principal); F10.239 Alcohol dependence with withdrawal, unspecified; F17.210 Nicotine dependence, cigarettes, uncomplicated; Y90.6 Blood alcohol level of 120-199 mg/100 ml; E87.6 Hypokalemia; G47.33 Obstructive sleep apnea (adult) (pediatric); I10 Essential (primary) hypertension; Z90.79 Acquired absence of other genital organ(s); F43.10 Post-traumatic stress disorder, unspecified; D72.828 Other elevated white blood cell count; G47.00 Insomnia, unspecified
CPT/HCPCS: 36415; 51701; 80048; 80053; 80069; 81001; 83735; 84443; 85025; 93005; 93010; 94640; 94660; 94762; 96374; 97110; 97161; 97165; 97530; 97535; 99285-25; A9270; C1751; G0480; J2060; J2405; J3411; J3475; J3480; J7042; U0002

== ENCOUNTER 2020-11-15 14:55 | Observation (INO) | payer OTHER ==
[~2020-11-15] VITALS: Ht 175.3 cm; Wt 95.2 kg
[2020-11-15 17:21] LABS: Alanine Aminotransfer (ALT/SGP 41 U/L (12-78); Albumin, Blood 3.5 g/dL (3.4-5.0); Alk Phos 82 U/L (50-136); Anion Gap 9 mmol/L (6-16); Aspartate Aminotrans (AST/SGOT 43 U/L (12-37); BASOPHILS ABSOLUTE AUTO 0.07 K/mm3 (0.00-0.23); BASOPHILS PERCENT AUTO 1 % (0-2); Bilirubin, Total 0.2 mg/dL (0.1-1.0); Blood Urea Nitrogen 11 mg/dL (8-24); Bun/Creatinine Ratio 12.8 (12.0-20.0); CO2, Blood 19 mmol/L (21-32); Calcium, Blood 8.5 mg/dL (8.5-10.1); Chloride, Blood 113 mmol/L (98-108); Creatinine, Blood 0.86 mg/dL (0.60-1.20); EOSINOPHILS ABSOLUTE AUTO 0.07 K/mm3 (0.00-0.68); EOSINOPHILS PERCENT AUTO 1 % (0-6); Globulin, Blood 3.5 g/dL (2.2-4.0); Glomerular Filtration Rate >60 (60-); Glucose, Blood 112 mg/dL (70-99); Hematocrit 43.6 % (37.0-53.0); Hemoglobin 14.7 g/dL (13.5-17.5); IMMATURE GRAN ABSOLUTE AUTO 0.06 K/mm3 (0.00-0.10); IMMATURE GRAN PERCENT AUTO 1 % (0-1); LYMPHOCYTES ABSOLUTE AUTO 3.21 K/mm3 (0.84-5.20); LYMPHOCYTES PERCENT AUTO 33 % (21-46); MONOCYTES ABSOLUTE AUTO 0.47 K/mm3 (0.16-1.47); MONOCYTES PERCENT AUTO 5 % (4-13); Mean Corpuscular HGB 29.6 pg (26.0-34.0); Mean Corpuscular HGB Conc 33.7 g/dL (31.5-36.5); Mean Corpuscular Volume 88 fL (80-100); NEUTROPHILS ABSOLUTE AUTO 5.94 K/mm3 (1.96-9.15); NEUTROPHILS PERCENT AUTO 61 % (41-73); NRBC ABSOLUTE 0.02 K/mm3 (0.00-0.02); NRBC Auto 0.2 /100 WBC (0.0-0.2); RDW Coefficient Variation 13.2 % (11.7-14.2); RDW Standard Deviation 42.6 fL (35.1-46.3); Red Blood Cell Count 4.96 M/mm3 (4.30-5.90); Sodium, Blood 141 mmol/L (136-145); White Blood Cell Count 9.82 K/mm3 (4.00-11.30)
[2020-11-15 17:32] LABS: Ethanol (Alcohol), Blood, Med 284 mg/dL; Salicylate 2.7 mg/dL (2.8-20.0)
[2020-11-15 17:36] LABS: Acetaminophen, Random <2.0 ug/mL (10.0-30.0)
[2020-11-15 17:58] LABS: Source, Urine Voided
[2020-11-15 18:07] LABS: Mean Platelet Volume 10.9 fL (9.1-12.4); Platelet Count 215 K/mm3 (150-400)
[2020-11-15 18:35] LABS: Bilirubin, Urine Neg (Neg); Blood, Urine Neg (Neg); Glucose Qualitative, Urine Neg (Neg); Ketones, Urine 1+ (Neg); Leukocyte Esterase, Urine Neg (Neg); Nitrite, Urine Neg (Neg); Protein, Urine Neg (Neg); Specific Gravity, Urine 1.015 (1.003-1.022); Urobilinogen, Urine NORM (Normal)
[2020-11-15 18:42] LABS: Appearance, Urine Clear (Clear); Color, Urine Yellow (P-Yellow)
[2020-11-15] MEDS ORDERED: ATOR40TA PO (20:36)
[2020-11-15 21:03] LABS: U Amphetamine Screen Not Detected; U Barbituate Screen Not Detected; U Benzodiazapine Screen Not Detected; U Buprenorphine Screen Not Detected; U Cannabinoids Screen Not Detected; U Cocaine Screen Not Detected; U Methadone Screen Not Detected; U Methamphetamine Screen Not Detected; U Opiates Screen Not Detected; U Oxycodone Screen Not Detected; U Phencyclidine Screen Not Detected; U Propoxyphene Screen Not Detected
[2020-11-16 03:45] LABS: BASOPHILS ABSOLUTE AUTO 0.05 K/mm3 (0.00-0.23); BASOPHILS PERCENT AUTO 1 % (0-2); EOSINOPHILS ABSOLUTE AUTO 0.08 K/mm3 (0.00-0.68); EOSINOPHILS PERCENT AUTO 1 % (0-6); Hematocrit 37.4 % (37.0-53.0); Hemoglobin 12.5 g/dL (13.5-17.5); IMMATURE GRAN ABSOLUTE AUTO 0.07 K/mm3 (0.00-0.10); IMMATURE GRAN PERCENT AUTO 1 % (0-1); LYMPHOCYTES ABSOLUTE AUTO 4.14 K/mm3 (0.84-5.20); LYMPHOCYTES PERCENT AUTO 45 % (21-46); MONOCYTES ABSOLUTE AUTO 0.66 K/mm3 (0.16-1.47); MONOCYTES PERCENT AUTO 7 % (4-13); Mean Corpuscular HGB 29.6 pg (26.0-34.0); Mean Corpuscular HGB Conc 33.4 g/dL (31.5-36.5); Mean Corpuscular Volume 89 fL (80-100); Mean Platelet Volume 10.4 fL (9.1-12.4); NEUTROPHILS ABSOLUTE AUTO 4.16 K/mm3 (1.96-9.15); NEUTROPHILS PERCENT AUTO 45 % (41-73); Platelet Count 218 K/mm3 (150-400); RDW Coefficient Variation 13.4 % (11.7-14.2); RDW Standard Deviation 43.8 fL (35.1-46.3); Red Blood Cell Count 4.22 M/mm3 (4.30-5.90); White Blood Cell Count 9.16 K/mm3 (4.00-11.30)
[2020-11-16 04:04] LABS: Anion Gap 6 mmol/L (6-16); Blood Urea Nitrogen 12 mg/dL (8-24); CO2, Blood 24 mmol/L (21-32); Calcium, Blood 7.6 mg/dL (8.5-10.1); Chloride, Blood 115 mmol/L (98-108); Creatinine, Blood 0.86 mg/dL (0.60-1.20); Glomerular Filtration Rate >60 (60-); Glucose, Blood 79 mg/dL (70-99); Potassium, Blood 3.9 mmol/L (3.5-5.5); Sodium, Blood 145 mmol/L (136-145)
== END 2020-11-16 10:42 | disposition home or self-care (01) ==
LOC: ER 14:55 → ERHOLD 14:56
PROVIDERS: Emergency Medicine; Nurse Practitioner Acute Care; ADMIT Internal Medicine
DX: E87.2 Acidosis (principal); F10.120 Alcohol abuse with intoxication, uncomplicated; I95.2 Hypotension due to drugs; I10 Essential (primary) hypertension; F17.200 Nicotine dependence, unspecified, uncomplicated; K21.9 Gastro-esophageal reflux disease without esophagitis; R45.851 Suicidal ideations; G47.33 Obstructive sleep apnea (adult) (pediatric); F43.10 Post-traumatic stress disorder, unspecified; F41.9 Anxiety disorder, unspecified; F32.9 Major depressive disorder, single episode, unspecified; G40.909 Epilepsy, unspecified, not intractable, without status epilepticus; Y90.8 Blood alcohol level of 240 mg/100 ml or more; Z91.19 Patient's noncompliance with other medical treatment and regimen
CPT/HCPCS: 36415; 71045; 74177; 80048; 80053; 81003; 83605; 83690; 84484; 85025; 93005; 93010; 96361; 96374-59; 96375; 99285-25; A9270; C1751; G0378; G0480; J2060; J2405; J2765; J3360; J7030; Q9967

== ENCOUNTER 2021-02-03 11:05 | Inpatient (IN) | payer OTHER, MEDICARE ==
[~2021-02-03] VITALS: Ht 175.3 cm; Wt 89.4 kg
[~2021-02-03 11:05] MED LIST changes: +ATOR40TA PO
[2021-02-03 12:06] LABS: Alanine Aminotransfer (ALT/SGP 28 U/L (12-78); Albumin, Blood 3.6 g/dL (3.4-5.0); Albumin/Globulin Ratio 0.9 (0.8-1.8); Alk Phos 90 U/L (50-136); Anion Gap 20 mmol/L (6-16); Aspartate Aminotrans (AST/SGOT 33 U/L (12-37); Bilirubin, Total 0.5 mg/dL (0.1-1.0); Blood Urea Nitrogen 22 mg/dL (8-24); Bun/Creatinine Ratio 20.8 (12.0-20.0); CO2, Blood 13 mmol/L (21-32); Calcium, Blood 8.7 mg/dL (8.5-10.1); Chloride, Blood 101 mmol/L (98-108); Creatinine, Blood 1.06 mg/dL (0.60-1.20); Globulin, Blood 4.1 g/dL (2.2-4.0); Glomerular Filtration Rate >60 (60-); Glucose, Blood 122 mg/dL (70-99); Potassium, Blood 4.4 mmol/L (3.5-5.5); Sodium, Blood 134 mmol/L (136-145); Total Protein, Blood 7.7 g/dL (6.4-8.2)
[2021-02-03 12:22] LABS: BASOPHILS ABSOLUTE AUTO 0.05 K/mm3 (0.00-0.23); BASOPHILS PERCENT AUTO 0 % (0-2); EOSINOPHILS PERCENT AUTO 0 % (0-6); Hematocrit 46.8 % (37.0-53.0); Hemoglobin 15.5 g/dL (13.5-17.5); IMMATURE GRAN ABSOLUTE AUTO 0.14 K/mm3 (0.00-0.10); IMMATURE GRAN PERCENT AUTO 1 % (0-1); LYMPHOCYTES ABSOLUTE AUTO 2.21 K/mm3 (0.84-5.20); LYMPHOCYTES PERCENT AUTO 9 % (21-46); MONOCYTES ABSOLUTE AUTO 0.68 K/mm3 (0.16-1.47); MONOCYTES PERCENT AUTO 3 % (4-13); Mean Corpuscular HGB 30.2 pg (26.0-34.0); Mean Corpuscular HGB Conc 33.1 g/dL (31.5-36.5); Mean Corpuscular Volume 91 fL (80-100); NEUTROPHILS ABSOLUTE AUTO 20.38 K/mm3 (1.96-9.15); NEUTROPHILS PERCENT AUTO 87 % (41-73); Platelet Count 325 K/mm3 (150-400); RDW Coefficient Variation 13.5 % (11.7-14.2); Red Blood Cell Count 5.13 M/mm3 (4.30-5.90); White Blood Cell Count 23.46 K/mm3 (4.00-11.30)
[2021-02-03 17:59] LABS: BASOPHILS ABSOLUTE AUTO 0.03 K/mm3 (0.00-0.23); BASOPHILS PERCENT AUTO 0 % (0-2); EOSINOPHILS PERCENT AUTO 0 % (0-6); Hematocrit 42.9 % (37.0-53.0); Hemoglobin 14.4 g/dL (13.5-17.5); IMMATURE GRAN ABSOLUTE AUTO 0.15 K/mm3 (0.00-0.10); IMMATURE GRAN PERCENT AUTO 1 % (0-1); LYMPHOCYTES ABSOLUTE AUTO 2.31 K/mm3 (0.84-5.20); LYMPHOCYTES PERCENT AUTO 11 % (21-46); MONOCYTES PERCENT AUTO 6 % (4-13); Mean Corpuscular HGB 30.2 pg (26.0-34.0); Mean Corpuscular HGB Conc 33.6 g/dL (31.5-36.5); Mean Corpuscular Volume 90 fL (80-100); NEUTROPHILS ABSOLUTE AUTO 18.19 K/mm3 (1.96-9.15); NEUTROPHILS PERCENT AUTO 82 % (41-73); Platelet Count 304 K/mm3 (150-400); RDW Coefficient Variation 13.5 % (11.7-14.2); RDW Standard Deviation 44.4 fL (35.1-46.3); Red Blood Cell Count 4.77 M/mm3 (4.30-5.90); White Blood Cell Count 22.08 K/mm3 (4.00-11.30)
--- NOTE | 2021-02-03 18:28 | NUR ---
ASSUMED CARE: PT ARRIVED FROM ED THRASHING IN BED WITH 4 POINT RESTRAINTS ON. PRECEDEX STARTED AND TITRATED TO 0.5MCG. 4 POINT RESTRAINTS AND LANETTE IN PLACE. CALL TO DR DU TO GIVE AN UPDATE AND ASKED IF HE WANTED LOVENOX ADMINISTERED DUE TO BLOODY EMESIS AND KAILA COLORED RESIDUE TO MOUTH. DR DU SAID H/H STABLE AT THIS TIME SO RECHECK CBC THIS EVENING AND IF DECREASED FROM ORIGINAL DC LOVENOX. ASKED FOR GI CONSULT BUT NO CONSULT AVAILABLE AT THIS TIME. INFORMED DR ABOUT PT'S HR AND ASKED FOR MEDICATION OR BOLUS FOR THIS AND DR STATED TO GIVE BANANA BAG, THEN A BOLUS, THEN START IVFS. AWAITING LAB RESULTS.
[2021-02-03 18:56] LABS: U Amphetamine Screen Not Detected; U Barbituate Screen DETECTED; U Benzodiazapine Screen DETECTED; U Buprenorphine Screen Not Detected; U Cannabinoids Screen Not Detected; U Cocaine Screen Not Detected; U Methadone Screen Not Detected; U Methamphetamine Screen Not Detected; U Opiates Screen Not Detected; U Oxycodone Screen Not Detected; U Phencyclidine Screen Not Detected; U Propoxyphene Screen Not Detected
[2021-02-03 19:03] LABS: Influenza A, PCR NEGATIVE (NEGATIVE); Influenza B, PCR NEGATIVE (NEGATIVE); Resp Syncytial Virus, PCR NEGATIVE (NEGATIVE); SARS-Cov-2 (COVID-19) PCR, MMC NEGATIVE (NEGATIVE)
[2021-02-03 20:49] LABS: BASOPHILS ABSOLUTE AUTO 0.03 K/mm3 (0.00-0.23); BASOPHILS PERCENT AUTO 0 % (0-2); EOSINOPHILS ABSOLUTE AUTO 0.01 K/mm3 (0.00-0.68); EOSINOPHILS PERCENT AUTO 0 % (0-6); Hematocrit 38.6 % (37.0-53.0); Hemoglobin 13.1 g/dL (13.5-17.5); IMMATURE GRAN ABSOLUTE AUTO 0.15 K/mm3 (0.00-0.10); IMMATURE GRAN PERCENT AUTO 1 % (0-1); LYMPHOCYTES ABSOLUTE AUTO 2.09 K/mm3 (0.84-5.20); LYMPHOCYTES PERCENT AUTO 11 % (21-46); MONOCYTES ABSOLUTE AUTO 1.51 K/mm3 (0.16-1.47); MONOCYTES PERCENT AUTO 8 % (4-13); Mean Corpuscular HGB Conc 33.9 g/dL (31.5-36.5); Mean Corpuscular Volume 89 fL (80-100); Mean Platelet Volume 10.4 fL (9.1-12.4); NEUTROPHILS ABSOLUTE AUTO 15.05 K/mm3 (1.96-9.15); NEUTROPHILS PERCENT AUTO 80 % (41-73); Platelet Count 214 K/mm3 (150-400); RDW Coefficient Variation 13.4 % (11.7-14.2); RDW Standard Deviation 43.7 fL (35.1-46.3); Red Blood Cell Count 4.36 M/mm3 (4.30-5.90); White Blood Cell Count 18.84 K/mm3 (4.00-11.30)
--- NOTE | 2021-02-04 01:20 | NUR ---
02/03 @ 1900 TOOK REPORT FROM LOBITO BLANC. AFTER SOME DIFFICULTY PLACING A NEW IV, AND PLACEMENT OF POWERGLIDE BY LOBITO FOURNIER, COMPLETED WHAT ADMISSION HISTORY I COULD OBTAIN FROM THE CHART. CALLED MANAN, SPOUSE, OBTAINED CONSENTS, DISCLOSED SHE WAS GETTING READY FOR BED, DECIDED NOT TO ASK FULL ADMISSION QUESTIONAIRE AT 21:45 AT NIGHT. ALCOHOL CONSUMPTION IS FOLLOWS; PT. HAD BEEN CLEAN FOR ABOUT 4 YEARS, THEN ALMOST RANDOMLY PT. STARTED LOCKING HIMSELF IN BEDROOM FOR HOURS AT A TIME. LATER DISCLOSED TO HE HAD BEEN DRINKING, QUIT FOR ABOUT 3 WEEKS AND SOUGHT HELP THRU A.A. PT. STARTED DRINKING AGAIN SUNDAY, REST OF REPORT IS PREVIOUSLY WRITTEN IN PHYSICIAN NOTES. CHECKED PT. BELONGINGS, SENT ALBUTEROL INHALER TO PHARMACY, NOTED 1 PAIR OF JEANS, 1 ARANGO T-SHIRT, AND PAIR OF BLACK FLIP FLOPS, NO VALUABLES. YELLOW WEDDING BAND IN PLACE ON LEFT RING FINGER. ATTEMPTED TO TITRATE DOWN PRECEDEX DRIP, HAD TO INCREASE FOR AGITATION. SO FAR HAVE GIVEN 2 DOSES OF ATIVAN FOR INCREASING CIWA, SEE FLOWSHEET. WILL CONTINUE TO MONITOR.
[2021-02-04 03:41] LABS: BASOPHILS ABSOLUTE AUTO 0.02 K/mm3 (0.00-0.23); BASOPHILS PERCENT AUTO 0 % (0-2); EOSINOPHILS PERCENT AUTO 0 % (0-6); Hemoglobin 11.1 g/dL (13.5-17.5); IMMATURE GRAN ABSOLUTE AUTO 0.07 K/mm3 (0.00-0.10); IMMATURE GRAN PERCENT AUTO 0 % (0-1); LYMPHOCYTES ABSOLUTE AUTO 1.89 K/mm3 (0.84-5.20); LYMPHOCYTES PERCENT AUTO 11 % (21-46); MONOCYTES ABSOLUTE AUTO 1.85 K/mm3 (0.16-1.47); MONOCYTES PERCENT AUTO 11 % (4-13); Mean Corpuscular HGB 30.8 pg (26.0-34.0); Mean Corpuscular HGB Conc 34.7 g/dL (31.5-36.5); Mean Corpuscular Volume 89 fL (80-100); Mean Platelet Volume 9.9 fL (9.1-12.4); NEUTROPHILS ABSOLUTE AUTO 12.96 K/mm3 (1.96-9.15); NEUTROPHILS PERCENT AUTO 77 % (41-73); Platelet Count 191 K/mm3 (150-400); RDW Coefficient Variation 13.4 % (11.7-14.2); RDW Standard Deviation 44.1 fL (35.1-46.3); White Blood Cell Count 16.79 K/mm3 (4.00-11.30)
[2021-02-04 04:00] LABS: Magnesium, Blood 2.1 mg/dL (1.6-2.4)
[2021-02-04 04:09] LABS: Alanine Aminotransfer (ALT/SGP 22 U/L (12-78); Albumin, Blood 2.8 g/dL (3.4-5.0); Alk Phos 58 U/L (50-136); Anion Gap 5 mmol/L (6-16); Aspartate Aminotrans (AST/SGOT 44 U/L (12-37); Bilirubin, Total 0.8 mg/dL (0.1-1.0); Blood Urea Nitrogen 22 mg/dL (8-24); Bun/Creatinine Ratio 23.9 (12.0-20.0); CO2, Blood 21 mmol/L (21-32); Calcium, Blood 6.8 mg/dL (8.5-10.1); Chloride, Blood 112 mmol/L (98-108); Creatinine, Blood 0.92 mg/dL (0.60-1.20); Globulin, Blood 2.8 g/dL (2.2-4.0); Glomerular Filtration Rate >60 (60-); Glucose, Blood 121 mg/dL (70-99); Potassium, Blood 4.9 mmol/L (3.5-5.5); Sodium, Blood 138 mmol/L (136-145)
[2021-02-04 04:10] LABS: Total Protein, Blood 5.6 g/dL (6.4-8.2)
--- NOTE | 2021-02-04 06:27 | NUR ---
SHIFT SUMMARY PATIENT SLEPT WELL THROUGH NIGHT. GAVE 3 DOSES OF ATIVAN FOR CIWAs OF 13, SCORING FOR AGITATION, CONFUSION, SEE EMAR AND FLOWSHEET. ASSESSMENT IS CHARTED. VSS. WILL CONTINUE TO MONITOR.
--- NOTE | 2021-02-04 09:30 | NUR ---
Care Assumed 0700 Pt on Precedex 0.7 mcg/kg/hr, pt not opening eyes or able to follow directions. Snoring or attempting to situp in bed/pulling on restraints/thrashing at times. 4 point soft restraints and nathaniel in place. CIWA score of 14, treated per emar. Pt on Venturi mask, 40% FIO2%, SPO2 > 90%. No emesis or BM currently. NSR. VSS.
--- NOTE | 2021-02-04 09:50 | NUR ---
Provider visit, Dr. Luna Provider updated on patient. New orders recieved to change NS to 125 ml/hr and to change NS to TKO while Thiamine is infusing at rate of 125 ml/hr. Will switch NS from TKO to 125 ml/hr once Thiamine is completed.
--- NOTE | 2021-02-04 12:00 | NUR ---
Spoke to pts Spoke to patients and updated on pt status. states she will not be coming in today because she got a new puppy for her . states pt started drinking this sunday but prior to this he was sober and going to AA meetings. Also, states pt is suppose to wear CPAP at night but does not.
--- NOTE | 2021-02-04 13:09 | NUR ---
Update- Pt on oxymizer, 3.5 L, SPO2 > 90%. Pt yells "Help" or the word "Probably" occasionally but unable to state more. Pulling at restraints occasionally and attempting to situp in bed, treated per emar. CIWA of 12. NSR. VSS
--- NOTE | 2021-02-04 14:40 | NUR ---
Pt awake for a moment Pt awake, asked pt if he knew where he was and pt states no. Eyes open and tracking. Pt states hurting all over. Unable to state more. Falls back asleep and snoring. Attempting to situp in bed and unable to be reoriented, other times. CIWA score of 15, increased anxiety, agitation, tremors, and paroxysmal sweats. VSS. NSR.
--- NOTE | 2021-02-04 16:00 | NUR ---
Update- Iv infiltration Pt's left hand IV infiltration, removed and powerglide inserted to LESLYE via charge nurse, blanquita. Pt required 5 nurses to hold patient to place powerglide. Pt with increased agitation, treated per emar. Unable to be orineted verbally. Tolerated powerlgide placement well. Attempted peripheral IV without success.
--- NOTE | 2021-02-04 17:56 | NUR ---
Shift Summary Pt continues to be on Precedex 0.7 mcg/kg/hr. Pt only had one moment of clarity during shift otherwise unable to follow directions. Continues to snore. On 3.5 L via oxyimzer, SPO2 > 88%. Frank in place, 900 Ml of yellow/clear urine. vss. nsr. Istrate in to see patient at this time, all questions answered and updated on pt status.
[2021-02-05 03:18] LABS: BASOPHILS ABSOLUTE AUTO 0.03 K/mm3 (0.00-0.23); BASOPHILS PERCENT AUTO 0 % (0-2); EOSINOPHILS ABSOLUTE AUTO 0.01 K/mm3 (0.00-0.68); EOSINOPHILS PERCENT AUTO 0 % (0-6); Hematocrit 33.5 % (37.0-53.0); Hemoglobin 11.5 g/dL (13.5-17.5); IMMATURE GRAN ABSOLUTE AUTO 0.09 K/mm3 (0.00-0.10); IMMATURE GRAN PERCENT AUTO 1 % (0-1); LYMPHOCYTES PERCENT AUTO 14 % (21-46); MONOCYTES ABSOLUTE AUTO 1.63 K/mm3 (0.16-1.47); MONOCYTES PERCENT AUTO 10 % (4-13); Mean Corpuscular HGB 30.3 pg (26.0-34.0); Mean Corpuscular HGB Conc 34.3 g/dL (31.5-36.5); Mean Corpuscular Volume 88 fL (80-100); Mean Platelet Volume 10.2 fL (9.1-12.4); NEUTROPHILS ABSOLUTE AUTO 13.04 K/mm3 (1.96-9.15); NEUTROPHILS PERCENT AUTO 76 % (41-73); Platelet Count 177 K/mm3 (150-400); RDW Coefficient Variation 13.4 % (11.7-14.2); RDW Standard Deviation 43.5 fL (35.1-46.3)
[2021-02-05 03:43] LABS: Alanine Aminotransfer (ALT/SGP 25 U/L (12-78); Albumin, Blood 2.7 g/dL (3.4-5.0); Albumin/Globulin Ratio 0.9 (0.8-1.8); Alk Phos 68 U/L (50-136); Anion Gap 6 mmol/L (6-16); Aspartate Aminotrans (AST/SGOT 48 U/L (12-37); Bilirubin, Total 0.6 mg/dL (0.1-1.0); Blood Urea Nitrogen 11 mg/dL (8-24); Bun/Creatinine Ratio 13.1 (12.0-20.0); CO2, Blood 26 mmol/L (21-32); Calcium, Blood 7.4 mg/dL (8.5-10.1); Chloride, Blood 110 mmol/L (98-108); Creatinine, Blood 0.84 mg/dL (0.60-1.20); Glomerular Filtration Rate >60 (60-); Glucose, Blood 134 mg/dL (70-99); Magnesium, Blood 2.1 mg/dL (1.6-2.4); Potassium, Blood 3.2 mmol/L (3.5-5.5); Sodium, Blood 142 mmol/L (136-145); Total Protein, Blood 5.7 g/dL (6.4-8.2)
[2021-02-05 03:56] LABS: Phosphorus, Blood 0.8 mg/dL (2.5-4.9)
--- NOTE | 2021-02-05 06:01 | NUR ---
SHIFT SUMNARY ATTEPMTED DURING SHIFT TO TURN DOWN PRECEDEX AND RELY ON ATIVAN 2MG MORE FREQUENTLY. NIGHT WENT ON PT. BECAME MORE AGITATED AT BASELINE, TURNED PRECEDEX BACK UP TO 0.7 MCG/KG/HR, SLEEPING SOUNDLY. MAY BENEFIT FROM AN NG AND REGULARLY SCHEDULED LIBRIUM. ASSESSMENT IS CHARTED. VSS. WILL CONTINUE TO MONITOR.
--- NOTE | 2021-02-05 08:10 | NUR ---
Provider Visit - Dr. Mike Provider updated on pt status. New orders for K/Phos replacement.
--- NOTE | 2021-02-05 09:04 | NUR ---
Care Assumed 0700 Pt on Precedex 0.7 mcg/kg/hr, not able to follow directions at this time. Moans/snoring at times or nonsensical speech. Pt has two powergldies for infusing meds, LESLYE/KARLEY, hard stick. On 3.5 L via oxymizer, SPO2 > 94%, lung sounds, wheezing upper and dim lower. Has a nonproductive cough occasionally. BP 156/78 currently and HR 60's. Afebrile. NSR. Frank in place, draning to gravity.
--- NOTE | 2021-02-05 09:08 | NUR ---
Patients called Spoke to , Fatou, updated on patient status. All questions answered. states she will come visit when patient is more clear and able to talk to her.
--- NOTE | 2021-02-05 12:30 | NUR ---
STEVEN 12 - Update Pt with paroxysmal sweat, anxiety, and agitated. Unable to follow commands. States nonsensical words, asked once "Where am I," when updated on location, unable to answer further questions. Agitated at times, attempting to sit-up in bed/thrashing. Or times patient is snoring/sleeping. Remains on 3.5 L oxymizer, SPO2 > 90%. Precedex 0.7 mcg/kg/hr. Frank in place draining to gravity. NSR. BP 160's, will treat per emar.
--- NOTE | 2021-02-05 17:51 | NUR ---
Provider call - Dr. Mike called in regards to pt being fluids positive yesterday and wheezing. New orders recieved.
--- NOTE | 2021-02-05 19:26 | NUR ---
Shift Summary Pt on Precedex 0.7 mcg/kg/hr, infusing via LESLYE powerglide, not able to follow directions. Moans/snoring at times or has nonsensical speech. Has moments of increased agitation, attempting to sit-up in bed, pulling on restraints, pulling on IV lines, and kicking feet to sit-up in bed. Swining arms/attempting to punch. Tried to reorient patient but unable to. Four point restraints in place with posy. CIWA scores between 7 - 16, treated with emar. NSR. On oxymizer 3.5 L, SPO2 > 90%. NSR. Will report to oncoming shift.
--- NOTE | 2021-02-05 19:51 | NUR ---
02/05 @ 19:30 PT. ALERT, ABLE TO SPEAK A COUPLE OF FULL SENTENCES, MOSTLY FOCUSED ON GETTING OUT OF BED/ OUT OF HOSPITAL. PT IS NOT ORIENTED EVEN TO HIS OWN NAME, WHEN ASKED HE SAID HIS NAME IS "TRUNG." PT. ALSO BELIEVES WE ARE IN [place] SOMETIME IN THE 1980S. CONSTANTLY ASKING FOR HIS BEER, ATTEMPTING REDIRECTION. MAINTAINING PRECEDEX DRIP AT 0.7 MCG/KG/HR, WILL GIVE ATIVAN WHEN AGITATED. WILL CONTINUE TO MONITOR.
--- NOTE | 2021-02-05 20:30 | NUR ---
20:30 ATTEMPTED BEDSIDE SWALLOW EVAL, FAILED, COULD NOT FOLLOW DIRECTIONS.
[2021-02-06 03:38] LABS: Hematocrit 34.1 % (37.0-53.0); Hemoglobin 11.9 g/dL (13.5-17.5); Mean Corpuscular HGB 29.8 pg (26.0-34.0); Mean Corpuscular HGB Conc 34.9 g/dL (31.5-36.5); Mean Corpuscular Volume 85 fL (80-100); Mean Platelet Volume 10.7 fL (9.1-12.4); NRBC ABSOLUTE 0.02 K/mm3 (0.00-0.02); NRBC Auto 0.2 /100 WBC (0.0-0.2); Platelet Count 209 K/mm3 (150-400); RDW Coefficient Variation 12.9 % (11.7-14.2); RDW Standard Deviation 39.9 fL (35.1-46.3); White Blood Cell Count 11.79 K/mm3 (4.00-11.30)
[2021-02-06 03:58] LABS: Alanine Aminotransfer (ALT/SGP 26 U/L (12-78); Albumin, Blood 2.7 g/dL (3.4-5.0); Albumin/Globulin Ratio 0.8 (0.8-1.8); Alk Phos 76 U/L (50-136); Anion Gap 5 mmol/L (6-16); Aspartate Aminotrans (AST/SGOT 44 U/L (12-37); Bilirubin, Total 0.7 mg/dL (0.1-1.0); Blood Urea Nitrogen 8 mg/dL (8-24); CO2, Blood 28 mmol/L (21-32); Calcium, Blood 7.8 mg/dL (8.5-10.1); Chloride, Blood 106 mmol/L (98-108); Creatinine, Blood 0.89 mg/dL (0.60-1.20); Globulin, Blood 3.6 g/dL (2.2-4.0); Glomerular Filtration Rate >60 (60-); Glucose, Blood 122 mg/dL (70-99); Phosphorus, Blood 1.9 mg/dL (2.5-4.9); Potassium, Blood 2.7 mmol/L (3.5-5.5); Sodium, Blood 139 mmol/L (136-145); Total Protein, Blood 6.3 g/dL (6.4-8.2)
--- NOTE | 2021-02-06 05:17 | NUR ---
SHIFT SUMMARY PATIENT HAS SLEPT WELL TONIGHT. AT 05:00 LOOKING AROUND ROOM CALMLY, NOT THRASHING AROUND IN RESTRAINTS, AM STARTING TO TURN PRECEDEX DOWN. BILATERAL POWERGLIDES HAVE BEEN WNL ALL NIGHT, ASSESSED Q2H. ASSESSMENT IS CHARTED. VSS. WILL CONTINUE TO MONITOR.
--- NOTE | 2021-02-06 07:30 | NUR ---
Care Assumed 0700 Pt on precedex 0.5 mcg/kg/hr, snoring/easily awakens. Neuro status has improved, when asked if pt knows where he is pt states, "In a nice place." Calm and cooperative at this time. Following directions, strong glass edger strength. On RA, SPO2 94%. Pt decreases to SPO2 88% when sleeping but recovers quickly. Occasional dry/nonproductive right. RUL wheeze, clear LITO, and DIM lowers. BP stable. NSR.
--- NOTE | 2021-02-06 08:30 | NUR ---
Provider Visit Dr. carrion in to see patient. No new orders recieved. Updated on patient.
--- NOTE | 2021-02-06 10:26 | NUR ---
Provider call/Bedside Swallow Screen - Passed Pt passed bedside swallow eval. Dr. Mike called and updated. Recieved orders to advance diet to soft. Able to take medications with pudding, tolerated well.
--- NOTE | 2021-02-06 10:31 | NUR ---
Family called Patients spouse, Fatou called and updated on patient status. She was able to speak to patient via phone. Pt states to , "I don't know where I am." Pt updated. states she will comes visit later today. Calm and Cooperative. Occasionally pulling on ahuja cath and lines. Not oriented to location/month/year but able to follow commands.
--- NOTE | 2021-02-06 10:36 | NUR ---
Spouse called Pt asked to call to ask her to bring his dentures. Spoke to Fatou and states she will bring them when she comes in.
--- NOTE | 2021-02-06 11:30 | NUR ---
Large liquid BM Pt had large liquid BM, dark brown. Rectal tube had to be put in place due to continous diarrhea. Pt tolerated well. Pt not oriented to location but speaking to staff. Patient joking about having BM, states, "[facility]." VSS. on RA.
--- NOTE | 2021-02-06 13:00 | NUR ---
Update- agitation Patient with increased agitation, attempting to pull out powerglide. Unable to state location or event. Not following directions, attempting to get out of bed. States I need to go to the bathroom, updated that rectal tube and ahuja cath are in place. Rectal tube with 100 mlof dark liquid brown stool. Ciwa of 12, treated per emar. Precdex 0.4 mcg/kg/hr, attempted to titrate down without success.
--- NOTE | 2021-02-06 13:52 | NUR ---
AFIB- Dr. Mike called Provider called and updated on patients rthythm change. HR 100-120'd. New orders, see emar.
--- NOTE | 2021-02-06 14:30 | NUR ---
at bedside Patients , Fatou, at bedside. Patient appears agitated and asking to go home with . Fatou and I explain the importance of pt staying in the hospital. Patient continues to be agitated at times.
--- NOTE | 2021-02-06 16:00 | NUR ---
Afib with RVR 1432- Pt with increased agitation. Yelling at at bedside, stating I want to go home. HR 199, BP stable. Pt in Afib with RVR. Dr. Mike called and updated. New orders recieved. Give 5 mg of Cardizem push and started on Cardizem drip shortly after, 15 mg/hr for HR 199, per protocol. Charge nurse Joey and two RN's at bedside to assist. Pt with increased agitation, attempting to get out of bed, Ativan given. Precedex GTT 0.7 mcg/kg/hr. Rhythm strip in chart. Around 1545, patients went home for the night. Pts states, "I think he's more agitated because I am here and he wants to go home with me." Pt attempting to sitting up in bed yelling, "I need to get the chicken." Pts updated on current patient care and all questions answered. Pts states he has never been treated for AFIB but pt states yes I take medication for that. Unclear at this point. Decreased agitation after left. Pt sleeping afterwards. See vital sign flow sheet for HR/BP.
--- NOTE | 2021-02-06 16:38 | NUR ---
NSR - Provider Call 1612- Pt converted to NSR. At 1638 Diltiazem placed on SB after calling Dr. Mike. Dr. Mike updated on pt converting to NSR and being hypotensive, MAP 60-61. BP 95/49. Provider asked if pt has had metoprolol dose, updated on recieving dose. Asked to place Diltiazem on SB for now and restart if need be.
--- NOTE | 2021-02-06 16:51 | NUR ---
Convertered to Afib- Provider call Pt has convertered back to AFIB, HR 90's MAP low 60's. Dr. Mike called and made aware. Diltiazem restarted at 5 mg/hr, see flow sheet. If BP continues to drop, stop Diltiazem GTT and start on oral digoxin, per Dr. Mike.
--- NOTE | 2021-02-06 18:49 | NUR ---
Increased agitation Patient pulling on lines/cord/restraints and attempting to punch nurse. Charge nurse at bedside and soft wrist restraints and posy resecured. Pt cursing and verbally abusive. Unable to state location or follow direction. Charge nurse able to calm patient with verbal redirection. Precedex GTT 0.7 mcg/kg/hr.
--- NOTE | 2021-02-06 19:09 | NUR ---
Shift Summary Precedex GTT 0.7 mcg/kg/hr, pt unable to follow directions or aware of location. Increased agitation at times, pulling on restraints/lines and cursing/yelling at staff. Or patient is snoring/sleeping at other times. Continues on Cardizem drip 5 mg/hr, HR 90's, remains in AFIB, and BP stable. Rectal tube in place with liquid brown stool (100 ml out put). Frank in place with dark yellow clear- 600 ml output. On 2 L via NC, lung sounds clear, SPO2 > 90%. Decreases to 88% when sleeping.
[2021-02-07 03:55] LABS: Anion Gap 5 mmol/L (6-16); Blood Urea Nitrogen 11 mg/dL (8-24); CO2, Blood 28 mmol/L (21-32); Calcium, Blood 7.9 mg/dL (8.5-10.1); Chloride, Blood 108 mmol/L (98-108); Creatinine, Blood 0.84 mg/dL (0.60-1.20); Glomerular Filtration Rate >60 (60-); Glucose, Blood 129 mg/dL (70-99); Magnesium, Blood 1.9 mg/dL (1.6-2.4); Phosphorus, Blood 2.7 mg/dL (2.5-4.9); Potassium, Blood 2.8 mmol/L (3.5-5.5); Sodium, Blood 141 mmol/L (136-145)
--- NOTE | 2021-02-07 06:35 | NUR ---
END OF SHIFT SUMNMARY: CARDIZEM DRIP TURNED 0FF ON INITIAL ASSESSMENT OF PATIENT IT WAS NO LONGER INDICATED. PATIENT HAS BEEN NSR ALL NIGHT, ON 2L NC, BP REMAINS STABLE. PATIENT A/O TO SELF AND IS CURRENTLY A 9 WITH CIWA. PATIENT REMAINS IN BILATERAL WRIST RESTRAINTS AND A VEST HE CONTINUOUSLY TRIES TO GET UP/PULL LINES/TUBES. HE IS PLEASANTLY REDIRECTABLE AND NO ATIVAN WAS GIVEN OVERNIGHT. PRECEDEX AT 0.7. POTASSIUM INFUSING FOR K OF 2.8. PATIENT OFFERED FLUIDS THROUGHOUT THE NIGHT AND HAS GOOD URINE OUTPUT.
--- NOTE | 2021-02-07 09:10 | NUR ---
Care Assumed 0700 pt very drowsy/sleepy. Precedex placed on SB. Able to follow directions, states the year as 2020, unable to state location. Asking for . States seeing his father in the room ealier. Pt states, "I must be hallucinating" and laughs. Quickly falls back asleep. NSR. HR 60'S. BP STABLE. ON RA, SPO2 > 90%. Nonproductive cough. Rectal tube pulled out by patient prior to care being assumed. Charge nurse, Tamiko and GERALDINE Conroy helped to clean patient. Rectal tube not placed again due to pt having pasty BM. Dr. Mike in to see patient, no new orders recieved.
--- NOTE | 2021-02-07 11:14 | NUR ---
CIWA 14 Patient is diaphoretic, states seeing his mother in the room who is talking to her, having auditory and visual hallucinations. Treated per emar, Precedex GTT 0.2 mcg/kg/min. SWB and Posy in place. Bed in low position.
--- NOTE | 2021-02-07 12:21 | NUR ---
Echocardiogram completed by Mayte Orosco under my supervision.
--- NOTE | 2021-02-07 17:46 | NUR ---
CIWA 19 INCREAED AGITATION AND ANXIETY. PT PULLING AT LINES/TUBES/RESTRAINTS AND ATTEMPTING TO SITUP IN BED. Pt states, "I SEE PUPPIES" "I NEED THE PUPPIES". OR PATIENT IS SAYING HE NEEDS TO GET OUT OF BED TO SEE , MANAN. Attempting to calm patient without success. Unable to add or state location. Tremors when arms extended. Treated per emar.
--- NOTE | 2021-02-07 19:26 | NUR ---
Shift Summary On Precedex 0.7 mcg/kg/min, currently, see flow sheet. Attempted to titrate down t/o shift but patient with increased agitation as shift went on. Following directions, unable to state location, states date as 2020. Has visual/auditory hallucinations occasionally, seeing puppies or parents in the room. Other times patient is calm/cooperative. Pulling at restraints/attempting to get out of bed to "go home to ." Easily agitated, pulling on restraints. SWB and Posy in place. Educted on importance of hospital visit and purpose of restraints. Pulling at powerglide/ahuja cath when agitated. CIWA score 7-19, see CIWA notes. NSR to sinus tach t/o shift. BP stable. Denies SOB/CP. Rectal tube pulled out by patient when care assumed. One loose BM t/o shift. Ahuja in place, yellow/clear output. Pt remained on RA, SPO2 > 90%. Temp elevated to 100. Call light within reach.
--- NOTE | 2021-02-07 19:45 | NUR ---
ASSUMED CARE RECEIVED REPORT FROM LOBITO PHAN. PT ASLEEP/SEDATED (SNORING) IN BED ON PRECEDEX AT 0.7 MCG/KG/HR. RASS OF -1 TO -2. VSS, MAP > 65, SINUS RHYTHM. SPO2 95% ON ROOM AIR. CAMPOVERDE PATENT AND DRAINING LIGHT YELLOW URINE. BED LOW AND LOCKED.
--- NOTE | 2021-02-07 21:27 | NUR ---
UPDATE-AGITATION/MEDS PT HAD WOKEN UP AROUND 1999, AFTER PRECEDEX WAS DECREASED TO 0.5 MCG/KG/HR AT 1950. INITIALLY PT WOKE UP AND WAS PLEASANT - DIFFICULT TO UNDERSTAND BUT NOT ANXIOUS OR AGITATED. HE WAS ORIENTED TO HIMSELF, THE YEAR, AND POSSIBLY HIS FAMILY BUT IT WAS DIFFICULT TO UNDERSTAND MOST OF HIS SPEECH. THOUGH, HE WAS ABLE TO MAINTAIN ALERTNESS AND FOCUS, BUT WAS A LITTLE RESTLESS IN BED. HE HAD AGREED TO TAKE HIS NIGHTTIME MEDICATIONS, AND HAD TOLERATED A SIP OF WATER WELL WITH NO COUGHING OR CHANGES IN TONE OF VOICE. BUT ONCE THE MEDICATIONS WENT INTO HIS MOUTH, HE CHANGED HIS MIND BECAUSE HE STARTED TO SPIT THEM ALL OUT IN BED, AND STARTED TO 'RAMP' UP WITH INCREASING AGITATION. UNSURE IF HE WAS HAVING AUDITORY HALLUCINATIONS, BUT WAS VISUALLY HALLUCINATING THINKING THERE WERE "... CIGGERETTES IN THE STORE OVER THERE...". PT GIVEN A TOTAL OF 4 MG, (TWO DOSES OF 2MG, FIRST 2MG DID NOT SEEM TO HELP). PRECEDEX WAS INCREASED TEMPORARILY TO KEEP THE PT SAFE - HE WAS PULLING VERY HARD ON RESTRAINTS AND TRYING TO GET OUT OF BED. HE ALSO WAS TRYING TO PULL OUT HIS CAMPOVERDE WITH HIS FEET/LEGS. PT HAS SINCE RESPONDED TO THE ATIVAN AND PRECEDEX; AND PRECEDEX IS BEING DECREASED BACK DOWN - CURRENTLY AT 1.0 MCG/KG/HR. CURRENT RASS OF -2, GOAL: -1. CPOT OF 0. WILL CONTINUE TO MONITOR.
--- NOTE | 2021-02-07 22:54 | NUR ---
UPDATE PT's HR HAS DECREASED INTO THE 50s FROM BEING IN THE 60s AT START OF SHIFT; BP IS STABLE, MAP > 65. CPOT OF 0. PRECEDEX HAS BEEN TURNED DOWN TO 0.7 MCG/KG/HR. WILL CONTINUE TO MONITOR. PT RASS OF -2.
[2021-02-07 22:59] LABS: Stool Occult Blood Guaiac 1 Pos (Neg)
--- NOTE | 2021-02-08 00:30 | NUR ---
CIWA AFTER PT HAVING A CIWA OF 13 PROGRESS INTO 21 IN A MATTER OF MINUTES AROUND 2100 YESTERDAY, PT HAS BEEN SLEEPING/RESTING SINCE ADMINISTRATION OF ATIVAN - HE HAS MAINTAINED SPO2 > 92% ON ROOM AIR, INITIALLY SNORING SOME - BUT THAT WAS SHORT LIVED. BP STABLE, MAP >65, AND HR HAS TRENDED UPWARDS A TAD AFTER DECREASING PRECEDEX (FROM 51-54 TO 57-60s). PT IN RASS OF -2 TO -1, PT INTERMITTENTLY MOVES AROUND IN BED. BED LOW AND LOCKED. RESTRAINTS SECURED TO PT AND BED.
[2021-02-08 03:59] LABS: Anion Gap 3 mmol/L (6-16); Blood Urea Nitrogen 9 mg/dL (8-24); CO2, Blood 28 mmol/L (21-32); Calcium, Blood 8.1 mg/dL (8.5-10.1); Chloride, Blood 110 mmol/L (98-108); Creatinine, Blood 0.82 mg/dL (0.60-1.20); Glomerular Filtration Rate >60 (60-); Glucose, Blood 128 mg/dL (70-99); Potassium, Blood 3.5 mmol/L (3.5-5.5); Sodium, Blood 141 mmol/L (136-145)
--- NOTE | 2021-02-08 06:05 | NUR ---
UPDATE-END OF SHIFT NO ACUTE CHANGES T/O NIGHT. INTERMITTENTLY WILL WAKE UP, MOVE AROUND IN BED - REPOSITIONING, PULL ON RESTRAINTS, THEN GO BACK TO SLEEP. TWO TIMES THROUGHOUT THE NIGHT THE PT WOKE UP AND BECAME AGITATED, AND WAS TRYING TO GET OUT OF BED, PULL ON CAMPOVERDE, PULLING ON RESTRAINTS, AND CALLING OUT, MOANING AND GROANING. HE APPEARED TO BE HAVING VISUAL HALLUCINATIONS (POSSIBLY AUDITORY). PT's CIWA WAS 13-14, THAT WOULD ESCALATE TO 19-21 PRIMARILY D/T INCREASED AGITAION, AND ANXIETY. PT HAS BEEN IN SINUS BRADYCARDIA T/O NIGHT. HR WAS IN THE 52-65 RANGE WHEN ASLEEP/MEDICATED, AND WOULD BE UP IN THE 80s WHEN AWAKE/AGITATED. PRECEDEX HAS BEEN DECREASED TO THE LOWEST DOSE THAT IS EFFECTIVELY KEEPING THE PT COMFORTABLE AT 0.7 MCG/KG/HR. BPs HAVE BEEN STABLE ALL NIGHT, MAP > 65. SPO2 HAS BEEN 92-95% ON ROOM AIR. AFEBRILE. RR ELEVATED AT TIMES IN THE 30s WHEN AGITATED BUT HAS BEEIN IN THE 10s-25s PRIMARILY. PT MOVES AROUND IN BED, REPOSITIONING SELF FOR THE MOST PART. WILL HELP REPOSITION BUT HE OFTEN WILL MOVE OUT OF THAT POSITION. BED IS LOW AND LOCKED. BED ALARM ON. RESTRAINTS (SWB + LANETTE) SECURED TO PT AND BED.
--- NOTE | 2021-02-08 09:30 | NUR ---
PT CURRENTLY SEDATED AND UNDERGOING ETOH WITHDRAWAL. PT SLEEPING AND DOES NOT 0APPEAR IN DISTRESS. CIWA DONE WITH SCORE OF 11, MEDICATED WITH PRN LORAZEPAM. UNABLE TO STATE NAME, BUT RESPONDS TO HIS NAME. UNABLE TO GIVE YEAR AND DOES NOT KNOW WHERE HE IS AT, AND IS CONFUSED. SPEECH IS SLURRED AND GARBLED. CURRENT SWR AND LANETTE. LUNGS CLEAR, DIM AT BASES, PT IS A CURRENT SMOKER. HR IN 50S, METOPROLOL HELD. PRESSURES IN 130-140S. PT DENIES NAUSEA/VOMITING. CAMPOVERDE DRAINING TO GRAVITY, CLEAR, DARK YELLOW URINE. PT CONTINUES TO REST AND DOES NOT APPEAR AGITATED AT THIS TIME.
--- NOTE | 2021-02-08 18:28 | NUR ---
SHIFT SUMMARY PT UNDERGOING ETOH WITHDRAWAL. SEDATED WITH PRECEDEX AT 0.7MCG/KG/MIN. CIWA HAS REMAINED AT A SCORE OF 9-11. MEDICATED WITH PRN LORAZEPAM QAM, NONE GIVEN REST OF THE DAY. HR IN 50-60S, METOPROLOL HELD IN AM DUE TO RATE IN 50S. PRESSURES RANGE IN 130-150S. PT ON RA, SATS >92%, PT IS CURRENT SMOKER AND COUGHS OCCASIONALLY WITH THICK, YELLOW SECRETIONS. NO EPISODES OF NAUSEA/VOMITING. PT AROUSABLE TO TOUCH AND VERBAL STIMULI, ORIENTED TO SELF ONLY, STATES YEAR OF 1919. REORIENTED FREQUENTLY T/O SHIFT. PT HAS REMAINED CALM AND COOPERATIVE, SLEEPING OFF AND ON THROUGHOUT THE DAY. HE IS CURRENTLY SLEEPING AND DOES NOT APPEAR TO BE IN DISTRESS.
--- NOTE | 2021-02-08 20:00 | NUR ---
ASSUMED CARE OF PT AT 1915. REPORT RECEIVED. PT PRESENTS IN BED. LANETTE AND SOFT WRIST RESTRAINTS SECONDARY TO ETOH W/D'S AND PT IMPULSIVE. PULLS AT LINES AND TUBES IF ALLOWED. PT CONFUSEED AND HAS GARBLED SPEECH. DOES NOT FOLLOW COMMANDS. DOES NOT ANSWER QUESTIONS OF LOCATION OR TIME AND DATE. WILL REVIEW CHART AND PLAN OF CARE FOR THIS PT.
--- NOTE | 2021-02-09 00:06 | NUR ---
HAVE MEDICATED PT ONCE WITH 2MG ATIVAN FOR INCREASING CIWA SCORING. SEE CIWA FLOWSHEET FOR DETAILS. PT CONTINUES WITH GARBLED SPEECH. IS ABLE TO ASK THIS RN FOR A POCKET KNIFE AND A CAN OF LIQUOR. REORIENTED PT TO PLACE AND REASON HE IS IN THE HOSPITAL. PT HAS BEEN ABLE TO MOVE ABOUT IN BED TO CHANGE HIS OWN POSIITON. WILL CONTINUE TO MONITOR PT, AND PROVIDE FOR HIS SAFETY. PRECEDEX CONTINUES. WILL USE ATIVAN ADJUNCT.
[2021-02-09 04:29] LABS: Hematocrit 39.5 % (37.0-53.0); Hemoglobin 13.7 g/dL (13.5-17.5); Mean Corpuscular HGB 30.3 pg (26.0-34.0); Mean Corpuscular HGB Conc 34.7 g/dL (31.5-36.5); Mean Corpuscular Volume 87 fL (80-100); Mean Platelet Volume 10.5 fL (9.1-12.4); NRBC ABSOLUTE 0.04 K/mm3 (0.00-0.02); NRBC Auto 0.3 /100 WBC (0.0-0.2); Platelet Count 245 K/mm3 (150-400); RDW Coefficient Variation 13.3 % (11.7-14.2); RDW Standard Deviation 42.4 fL (35.1-46.3); Red Blood Cell Count 4.52 M/mm3 (4.30-5.90); White Blood Cell Count 15.16 K/mm3 (4.00-11.30)
[2021-02-09 04:48] LABS: Anion Gap 7 mmol/L (6-16); Blood Urea Nitrogen 11 mg/dL (8-24); Bun/Creatinine Ratio 14.5 (12.0-20.0); CO2, Blood 23 mmol/L (21-32); Calcium, Blood 7.9 mg/dL (8.5-10.1); Chloride, Blood 110 mmol/L (98-108); Creatinine, Blood 0.76 mg/dL (0.60-1.20); Glomerular Filtration Rate >60 (60-); Glucose, Blood 102 mg/dL (70-99); Potassium, Blood 3.3 mmol/L (3.5-5.5); Sodium, Blood 140 mmol/L (136-145)
--- NOTE | 2021-02-09 06:30 | NUR ---
PT HAS BEEN MEDICATED WITH 2 MG ATIVAN FOR INCREASING CIWA SCORING. PT REMAINS CONFUSED. PULLS AT RESTRAINTS AND REQUESTS A KNIFE TO HELP HIMSELF CUT OFF THE RESTRAINTS. PT CONTINUES ON PRECEDEX AT 0.7 MCG'S. WILL CONTINUE TO MONITOR PT, AND WILL REPORT OFF TO ONCOING RN
--- NOTE | 2021-02-09 07:15 | NUR ---
ASSUMED CARE RECEIVED REPORT FROM LOBITO PHOENIX. PT IS LYING IN BED ASLEEP, PRECEDEX AT 0.7 MCG/KG/HR. LANETTE AND SWB RESTRAINTS SECURED TO PT AND BED. CAMPOVERDE PATENT DRAINING YELLOW URINE. PT IN SINUS RHYTHM, RATE 70s, BP STABLE, MAP>65, SPO2 > 94% ON ROOM AIR CURRENTLY. BED LOW AND LOCKED.
--- NOTE | 2021-02-09 07:18 | NUR ---
UPDATE - NEURO/BEHAVIORAL/CIWA WOKE UP UPON RECIEVING REPORT IN ROOM, WHILE AWAKE CIWA WAS CALCULATED AT ~11. HE WAS ORIENTED TO SELF AND HIS , BUT CONFUSED ABOUT WHERE HE WAS, WHAT WAS HAPPENING, AND THE MONTH (BUT KNEW THE YEAR). BUT DURING THIS TIME HE ASKED THESE QUESTIONS "WHAT IS GOING ON?...", "WHERE AM I?...", "MY IS WORRIED ABOUT ME, SHE THINKS IM HURT AND DOESN'T KNOW WHERE I AM." AFTER REORIENTING HIM TO HIS CURRENT SITUATION - HE GREW INCREASINGLY ANXIOUS AND PARANOID (BELIEVING THAT "WE" WERE UP TO SOMETHING) - NEVER GETTING TOO AGITATED, REMAINED RELATIVELY CALM AND NOT FIGHTING RESTRAINTS, YELLING, THRASHING AROUND, AND BEING COMBATIVE. HE INITIALLY AGREED TO TRYING A SWALLOW EVAL, BUT CURRENTLY IS BACK ASLEEP/RASS OF -1. WILL CONTINUE TO MONITOR.
--- NOTE | 2021-02-09 09:46 | NUR ---
UPDATE-SWALLOW/AM MEDS PT WAS AGREEABLE TO DRINKING WATER AND TAKING MORNING MEDICATIONS (INCLUDING 50 MG LIBRIUM). HE SWALLOWED FINE WITH NO ISSUES WITH COUGHING, GARGLED SPEECH, ETC... SO THEN HE WAS ABLE TO TAKE THE MEDS WITHOUT ANY ISSUE. WILL CONTINUE TO MONITOR.
--- NOTE | 2021-02-09 10:56 | NUR ---
UPDATE AFTER DISCUSSING WITH CARLOS, FROM DIETARY, REGARDING PT's LACK OF NUTRITION - DR. PEREZ WAS CALLED AND THE PT WAS STARTED BACK ON THE BANANA BAG, AND THE PT WILL RECEIVE ONE LITER A DAY TILL HE STARTS TO EAT. POSSIBLE DOBHOF/NG TUBE ROUTE MAY BE AN OPTION, BUT WILL DISCUSS LATER - PT MAY NOT TOLERATE THIS WELL. WHEN PT WAS AWAKE THIS MORNING, AND SWALLOWING WATER FINE - BUT HE REFUSED TO HAVE BREAKFAST. AND NOW HE IS SLEEPING A LOT. PRECEDEX WAS TURNED DOWN TO 0.5 MCG/KG/HR.
--- NOTE | 2021-02-09 19:40 | NUR ---
ASSUMED CARE OF PT AT 1915. REPORT RECEIVED AT BEDSIDE. PT PRESENTS IN BED. ALERT WITH CONFUSION. GARBLED SPEECH. HAS LANETTE VEST ON FOR PT SAFETY. PT VERY HIGH RISK FOR FALLS. CURTAINS TO ROOM LEFT OPEN TO PROVIDE FOR DIRECT VISUALIZATION. REMOTE CAMERA MONITORING IN USE FOR PT SAFETY. WILL REVIEW CHART AND PLAN OF CARE FOR THIS PT.
--- NOTE | 2021-02-09 20:04 | NUR ---
UPDATE - END OF SHIFT NO ACUTE CHANGES SINCE LAST NOTE/UPDATE, PRECEDEX AT 0.5 MCG/KG/HR, PT CIWA UP AND DOWN, HE DID ASK FOR LIBRIUM THIS LAST TIME "TO HELP HIM SLEEP". HE WAS NOT AGITATED, AND WAS CALM AND ORIENTED TO SELF, FAMILY, YEAR, AND SOMEWHAT SURROUNDINGS (ORIENTED SURROUNDINGS IS A NEW CHANGE). PT IS NO LONGER PARANOID (OR AT LEAST - HE DOESN'T SEEM TO BE). PT IN A LANETTE HE IS A BIG FALL RISK, HE WAS TAKEN OUT OF SWB RESTRAINTS HE WAS NOT TRYING TO PULL ON ANYTHING, AND HE WAS FOLLOWING SOME COMMANDS. HE WAS SLEEPING THIS EVENING AND TAKING THE RESTRAINTS OFF HELPED WITH HIS ANXIETY AND PARANOIA. CENTRAL MONITORING WAS ASKED TO WATCH HIM ON THE CAMERA AND TO REPORT ANYTHING THAT LOOKED LIKE HE WAS REACHING, PULLING, OR FIDDLING WITH ANY OF HIS CHORDS, LINES, OR TUBES. HE DIDN'T, PT RECEIVED A BANANA BAG TODAY, HE WAS NOT GETTING ANY NUTRITION BEFORE THIS. PT ALSO WAS ABLE TO DRINK HALF OF AN ENSURE COMPLETE DRINK. HE CONTINUES TO REFUSE FOOD WHEN HES AWAKE. BED LOW AND LOCKED.
[2021-02-10 05:07] LABS: Hematocrit 41.8 % (37.0-53.0); Hemoglobin 14.5 g/dL (13.5-17.5); Mean Corpuscular HGB 30.2 pg (26.0-34.0); Mean Corpuscular HGB Conc 34.7 g/dL (31.5-36.5); Mean Corpuscular Volume 87 fL (80-100); Mean Platelet Volume 11.6 fL (9.1-12.4); NRBC ABSOLUTE 0.04 K/mm3 (0.00-0.02); NRBC Auto 0.4 /100 WBC (0.0-0.2); Platelet Count 325 K/mm3 (150-400); RDW Coefficient Variation 13.9 % (11.7-14.2); White Blood Cell Count 11.14 K/mm3 (4.00-11.30)
[2021-02-10 05:47] LABS: Anion Gap 9 mmol/L (6-16); Blood Urea Nitrogen 11 mg/dL (8-24); Bun/Creatinine Ratio 12.9 (12.0-20.0); CO2, Blood 20 mmol/L (21-32); Calcium, Blood 8.7 mg/dL (8.5-10.1); Chloride, Blood 109 mmol/L (98-108); Creatinine, Blood 0.85 mg/dL (0.60-1.20); Glomerular Filtration Rate >60 (60-); Glucose, Blood 101 mg/dL (70-99); Potassium, Blood 4.7 mmol/L (3.5-5.5); Sodium, Blood 138 mmol/L (136-145)
--- NOTE | 2021-02-10 06:58 | NUR ---
PT HAS HAD A VERY ACTIVE NIGHT. HAS MOVE ABOUT HIS BED QUITE OFTEN. HAS BEEN NOTED TO TRY TO GET HIMSELF OUT OF BED EVEN WITH LANETTE AND WITH WRIST RESTRAINTS IN PLACE. PT HAS BEEN MEDICATED THREE TIMES WITH ATIVAN WITH FAIR RESULTS. PRECEDEX DRIP HAS BEEN DECREASED TO 0.5 MCG/KG/HOUR SECONDARY TO BLOOD PRESSURES BECOMING LOW WITH INCREASED DOSE. REPORT GIVEN TO LOBITO DESAI.
--- NOTE | 2021-02-10 07:15 | NUR ---
ASSUMED CARE RECEIVED REPORT FROM LOBITO PHOENIX. PT IS SLEEPING IN BED, INTERMITTENTLY MOVING AROUND, ON 2L NC, SPO2 > 94%. PRECEDEX IS INFUSING AT 0.5 MCG/KG/HR. PT IN SINUS RHYTHM, RATE 60s, BP STABLE, MAP > 65. CIWA UNMEASURABLE AT THE MOMENT D/T PT SLEEPING. BED LOW AND LOCKED.
--- NOTE | 2021-02-10 19:22 | NUR ---
ASSUMED CARE OF PT AT 1915. REPORT RECEIVED AT BEDSIDE. PT PRESENTS IN RECLINER CHAIR. ALERT AND IMPROVING ORIENTATION. PT ABLE TO HOLD COVERSATION. DOES HAVE SOME DISCONNECT FROM TOPIC OF CONVERSATION. WILL REVIEW CHART AND PLAN OF CARE FOR THIS PT.
--- NOTE | 2021-02-10 19:53 | NUR ---
END OF SHIFT FROM START OF SHIFT TILL ABOUT [id number] PT WAS LETHARGIC, SLEEPING FOR THE MAJORITY OF THE DAY, WHEN AWAKE PT WAS CONFUSED WITH A MODERATELY BUMPED CIWA, BUT NOT AGITATED, MILDLY ANXIOUS AND WOULD GO RIGHT BACK TO SLEEP WHEN NOT STIMULATED. SINCE HE WAS MORE LETHARGIC, AND SLEEPY THAN NORMAL HE WAS NOT GIVEN ATIVAN/LIBRIUM. PRECEDEX WAS TITRATED DOWN. HE WAS GIVEN A BATH AND LIFTED UP TO THE CHAIR, AND AFTER THE BATH AND TRANSFER WAS DONE HE STARTED TO FALL ASLEEP AGAIN. PRECEDEX WAS TURNED OFF AROUND ~1600 AND SHORTLY AFTER (AROUND 30 MINUTES) EDUARDO WOKE UP AND HE HAD CLEARED UP. HE ASKED WHAT WAS GOING ON, WHERE HE WAS, AND OTHER QUESTIONS REGARDING HIS CURRENT SITUATION - INCLUDING ASKING ABOUT HIS . WHEN TOLD THE ANSWERS, HE WAS ABLE TO RETAIN THIS INFORMATION. THE PT HAD BECOME ORIENTED TO SELF, SURROUNDINGS, PLACE, FAMILY, AND SOMEWHAT OF THE SITUATION. HE WAS FOLLOWING COMMANDS, AND HE WAS PLEASANT/COOPERATIVE. HE DID TALK ABOUT HIS HALLUCINATIONS, AND HE WAS STILL HAVING VISUAL HALLUCINATIONS (SEEING ALL KINDS OF "COLORS" AND RACE CAR DRIVERS) BUT HE KNEW THEY WERE NOT REAL. HE DISCUSSED [facility]ING [facility]. HE WAS GIVEN LIBRIUM TWICE AFTER THIS TIME BECAUSE OF HALLUCINATIONS, HEADACHE, TREMERS, ETC... (SEE CIWA SCORES). PT ALSO IS IMPULSIVE, AND CONFUSED IN THE SENSE HE FORGET ABOUT HIS CAPMOVERDE, AND TRIED TO GET TO THE TOILET. HE WAS STANDING TO THE SIDE OF THE CHAIR, NEAR THE TOILET BY THE TIME IT WAS REALIZED HE WAS OUT OF THE CHAIR WITH THE IV TUBINGS AND VS CHORDS PULLING. LUCKILY HE DID NOT FALL DOWN, AND WAS REDIRECTABLE AND COOPERATIVE TO GET BACK TO THE CHAIR. HE GOT BACK TO THE CHAIR WITH NO ISSUE - HE JUST SAID "I HAD TO USE THE TOILET". HE WAS REORIENTED AND HAD NO ISSUES SINCE. HIS LANETTE CAME UNDONE, BUT IT WAS RE-TIED, IN A MORE EFFICIENT WAY. DUE TO THESE MENTATION CHANGES, AND EDUARDO HAVING SOME CLARITY - HE WAS TAKEN OUT OF SWB RESTRAINTS BECAUSE HE IS NOT PULLING ON ANYTHING, AND HE UNDERSTAND TO BE CAREFUL OF HIS LINES. BUT HE REMAINS IN THE LANETTE HE IS A FALL RISK AND IS IMPULSIVE. REPORTED OFF TO LOBITO PHOENIX. PT REMAINS IN CHAIR WITH LANETTE, WATCHING TV. VSS. ROOM AIR. CHAIR LOCKED, AND CALL LIGHT WITHIN REACH.
[2021-02-11 03:55] LABS: Alanine Aminotransfer (ALT/SGP 26 U/L (12-78); Albumin, Blood 2.5 g/dL (3.4-5.0); Albumin/Globulin Ratio 0.8 (0.8-1.8); Alk Phos 67 U/L (50-136); Anion Gap 6 mmol/L (6-16); Aspartate Aminotrans (AST/SGOT 18 U/L (12-37); Bilirubin, Total 0.4 mg/dL (0.1-1.0); Blood Urea Nitrogen 9 mg/dL (8-24); Bun/Creatinine Ratio 10.2 (12.0-20.0); CO2, Blood 25 mmol/L (21-32); Calcium, Blood 7.7 mg/dL (8.5-10.1); Chloride, Blood 111 mmol/L (98-108); Creatinine, Blood 0.88 mg/dL (0.60-1.20); Glomerular Filtration Rate >60 (60-); Glucose, Blood 114 mg/dL (70-99); Magnesium, Blood 2.3 mg/dL (1.6-2.4); Phosphorus, Blood 3.3 mg/dL (2.5-4.9); Potassium, Blood 3.1 mmol/L (3.5-5.5); Sodium, Blood 142 mmol/L (136-145); Total Protein, Blood 5.5 g/dL (6.4-8.2)
--- NOTE | 2021-02-11 06:30 | NUR ---
PT HAS MOVED ABOUT BED OFTEN THROUGHOUT THE NIGHT. REMAINS WITH LANETTE IN PLACE FOR PT SAFETY. HAVE MEDICATED PT WITH 50 MG LIBRIUM ONCE THIS NIGHT. HAVE BEEN ABLE TO KEEP PRECEDEX DRIP OFF THROUGHOUT SHIFT. PT PLACED ON 2 L/M NASAL CANNULA DURING SLEEP. HAS BEEN ABLE TO MAINTAIN > 90 PERCENT SATURATION. WILL CONTINUE TO MONITOR PT, AND WILL REPORT OFF TO ONCOMING RN.
--- NOTE | 2021-02-11 07:15 | NUR ---
ASSUMED CARE PT SLEEPING COMFORTABLY IN BED AT THIS TIME. LANETTE ON INITIALLY BUT REMOVED. PRECEDEX ON SB. PG TO BUA, FLUSHED WITH 20NS EACH. ON 2L VIA NC, SAT >90%. PT CALM AND COOPERATIVE, ABLE TO FOLLOW COMMANDS. CIWA 14 AT THIS TIME, PT STATES HE "HAS HALLUCINATIONS WHEN I CLOSE MY EYES" AND THAT HE IS ALWAYS ANXIOUS. MILD TREMORS WITH ARMS EXTENDED. SLIGHTLY DIAPHORETIC. 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 CAMPOVERDE CATH PATENT AND DRAINING YELLOW CLEAR URINE TO GRAVITY. VS STABLE. WILL CONTINUE TO MONITOR.
--- NOTE | 2021-02-11 17:39 | NUR ---
SHIFT SUMMARY PT RESTING IN BED AT THIS TIME. PT UP TO CHAIR WITH PT/OT TODAY. 2L VIA NC SAT >90%. PT FAILED SWALLOW EVAL TODAY, NPO NOW, RECEIVING CLINAMIX AT 50ML/HR. PG TO KARLEY INFUSING, IV TO LAC INFUSING AT THIS TIME. PG TO LESLYE DC'D DUE TO INFILTRATION, NO REDNESS, MINIMAL SWELLING TO AREA AT THIS TIME. PT RESPONDS APPROPRIATELY THOUGH SOMETIMES INCOMPREHENSIBLE SPEECH. PRECEDEX REMAINS ON SB. CAMPOVERDE CATH PATENT AND DRAINING DARK YELLOW URINE TO GRAVITY. VS STABLE. WILL CONTINUE TO MONITOR.
--- NOTE | 2021-02-11 18:24 | NUR ---
DOCUMENTATION REVIEW ALL ASSESSMENTS AND NOTES REVIEWED THIS SHIFT. I AGREE WITH IT ARCHITECT DOCUMENTATION THIS SHIFT.
[2021-02-12 05:18] LABS: Alanine Aminotransfer (ALT/SGP 21 U/L (12-78); Albumin, Blood 2.6 g/dL (3.4-5.0); Albumin/Globulin Ratio 0.8 (0.8-1.8); Alk Phos 62 U/L (50-136); Anion Gap 6 mmol/L (6-16); Aspartate Aminotrans (AST/SGOT 14 U/L (12-37); Bilirubin, Total 0.4 mg/dL (0.1-1.0); Blood Urea Nitrogen 5 mg/dL (8-24); Bun/Creatinine Ratio 5.7 (12.0-20.0); CO2, Blood 25 mmol/L (21-32); Calcium, Blood 7.9 mg/dL (8.5-10.1); Chloride, Blood 111 mmol/L (98-108); Creatinine, Blood 0.87 mg/dL (0.60-1.20); Globulin, Blood 3.2 g/dL (2.2-4.0); Glomerular Filtration Rate >60 (60-); Glucose, Blood 115 mg/dL (70-99); Magnesium, Blood 2.4 mg/dL (1.6-2.4); Phosphorus, Blood 2.7 mg/dL (2.5-4.9); Potassium, Blood 2.9 mmol/L (3.5-5.5); Sodium, Blood 142 mmol/L (136-145); Total Protein, Blood 5.8 g/dL (6.4-8.2); Triglycerides 145 mg/dL (30-160)
--- NOTE | 2021-02-12 05:27 | NUR ---
SHIFT SUMMARY PATIENT HAS SLEPT OFF AND ON THROUGH NIGHT. CIWA MAX OF 10, NOTABLE FOR TREMORS, SWEATING, AND ANXIETY. PT. HAS ACTUALLY BEEN REQUESTING ATIVAN BEFORE HIS SYMPTOMS BECOME UNCONTROLABLE, SYMPTOMS USUALLY RESOLVE (EXCEPT FOR SWEATING, NEARLY CONTINUOUS) WITHIN 5-10 MINUTES OF ATIVAN ADMINISTRATION. USUALLY HAS BEEN ORIENTED, HAS SOME DIFFICULTY WHEN FIRST WAKING FROM SLEEP. ASKED ABOUT CALLING FOR MANAN HIS SPOUSE "IN THE OTHER ROOM DOWN THE YBARRA," REMINDED PATIENT THAT HIS WAS NOT IN THE BUILDING IT WAS 2 AM. ASSESSMENT IS CHARTED. VSS. WILL CONTINUE TO MONITOR.
--- NOTE | 2021-02-12 13:41 | NUR ---
REASSESSMENT PT CONTINUES TO BE CONFUSED, DISORIENTED TO WHERE HE IS AND SOMETIMES HAVING TROUBLE UNDERSTANDING DIRECTIONS. HE REORIENTES FAIRLY EASILY, BUT DOES NOT RETAIN THE INFORMATION. HIS LUNGS ARE CLEAR, DIM IN THE BASES. SR, BP STABLE. SPEECH SAW HIM AND CONTINUED NPO STATUS. CAMPOVERDE WITH YELLOW URINE WITH SEDIMENT IN THE TUBING. SPOKE WITH PT'S SO AND PROVIDED AN UPDATE THIS AM. CONTINUING TO MONITOR.
--- NOTE | 2021-02-12 16:48 | NUR ---
SHIFT SUMMARY PT CONTINUED TO BE CONFUSED TODAY BUT SEEMS TO BE MORE DIRECTABLE THIS AFTERNOON. HE STILL FORGETS WHERE HE IS, BUT IS MORE FOCUSED. IS CIWAA HAS BEEN LESS THAN 8 TODAY. ATIVAN GIVEN ONCE THIS MORNING WHEN PT REQUESTED IT WHEN HE WAS FEELING MORE ANXIOUS AND SHAKY. HIS LUNGS ARE CLEAR, ON RA. SR, BP STABLE. CAMPOVERDE DRAINING. REMAINS NPO TODAY PER SPEECH THERAPY. WORKED WITH PHYSICAL THERAPY. CONTINUING TO MONITOR.
--- NOTE | 2021-02-12 19:30 | NUR ---
ASSUMED CARE OF PATIENT AT APPROXIMATELY 1910 FROM [facility] Mej[facility] RN. PATIENT ALERT AND ORIENTED TO SELF; CONFUSED ON DATE; REPORTS DATE February AND [facility]; REPORTS HE IS HERE FOR DRINKING AND WANTS TO START WORKING OUT WHEN HE GET OUT OF HERE. HALLUCINATION; REPORTS HE HEARS CHICKENS AND NEEDS TO GO HOME AND TAKE CARE OF HIS . PATIENT REPORTS HIS AND HIM CRIED TOGETHER. ST ON HEART MONITOR; OXYEGN SATURATION ABOVE 90% ON ROOM AIR. TPN INFUSING INTO [facility].
--- NOTE | 2021-02-12 20:30 | NUR ---
PATIENT ATTEMPTING TO GET OUT OF BED OVER 10 TIMES SINCE START OF SHIFT; FALL RISK; CONFUSED; WEAK GAIT; LINES/TUBES; ETOH W/D. PATIENT MEDICATED BY ANOTHER RN TWICE WITH 2MG IV ATIVAN WHILE THIS RN WAS IN ANOTHER ISOLATION ROOM.
--- NOTE | 2021-02-12 21:20 | NUR ---
PATIENT REPEATEDLY TRYING TO SLIDE OUT OF BED; UNSTEADY GAIT; REMOTE MONITOR CALLED TO REPORT PATIENT ATTEMPTING TO GET OUT OF BED; ORDERS FOR VEST IN PLACE.
--- NOTE | 2021-02-12 22:30 | NUR ---
PATIENT HAVING VISUAL HALLUCINATIONS; REPORTS HE SEES A DOG IN ROOM; PATIENT NOW REPORTS HE IS AT HOME AND NEEDS TO GET UP TO PEE; CATHETER IN PLACE DRAINING SUMMER URINE. PATIENT BECOMING MORE AGITATED AND IRRITABLE AFTER IV ATIVAN; DISCUSSED WITH PROJECT BUYER; 2MG OF IV ATIVAN GIVEN. PATIENT REPEATEDLY PULLED VEST OVER HIS HEAD AND CONFUSED TRYING TO CLIMB OUT OF BED.
--- NOTE | 2021-02-12 23:00 | NUR ---
PATIENT CONTINUES TO BECOME MORE AGITATED, CONFUSED AND IRRITABLE; PULLING ON RESTRAINTS; CATHEHTER; HEART MONITOR LEADS; STILL REPORTS A DOG THAT IS BEING HIDDEN NOW. REPORTS HE NEED TO GO TAKE CARE OF HIS ; ORIENTED TO PLACE, DATE AND TIME. DISCUSSED WITH DIRECTOR SYSTEMSLOBITO Garcia; REPORT GIVEN TO SIMON Hudson RN.
--- NOTE | 2021-02-13 03:21 | NUR ---
02/12 @ 23:00 TOOK REPORT FROM LOBITO FOURNIER. PT REPEATEDLY TRYING TO GET OUT OF BED, PREVIOUSLY HAD WIGGLED HIMSELF OUT OF LANETTE VEST, REAPPLIED SMALLER VEST. STARTED PRECEDEX DRIP FOR CONFUSION, FALL RISK, AFTER REVIEWING CASE WITH MARY JO OLGUIN. RECEIVED ORDER TO PLACE SOFT WRIST RESTRAINTS WELL DUE TO PULLING AT LINES AND CAMPOVERDE. SOME PINK URINE NOTED AT THIS TIME. PT RESTING QUIETLY AFTER PRECEDEX INFUSION. SOME MODERATE SNORING, SPITS OUT OR CHEWS ON OXYGEN TUBING WHEN PLACED IN MOUTH, PLACED ON 8L VENTI MASK, REVIEWED WITH RT. VSS. WILL CONTINUE TO MONITOR.
[2021-02-13 04:19] LABS: Alanine Aminotransfer (ALT/SGP 19 U/L (12-78); Albumin, Blood 2.6 g/dL (3.4-5.0); Albumin/Globulin Ratio 0.7 (0.8-1.8); Alk Phos 63 U/L (50-136); Anion Gap 6 mmol/L (6-16); Aspartate Aminotrans (AST/SGOT 17 U/L (12-37); Bilirubin, Total 0.2 mg/dL (0.1-1.0); Blood Urea Nitrogen 6 mg/dL (8-24); Bun/Creatinine Ratio 7.9 (12.0-20.0); CO2, Blood 22 mmol/L (21-32); Calcium, Blood 7.9 mg/dL (8.5-10.1); Chloride, Blood 112 mmol/L (98-108); Creatinine, Blood 0.76 mg/dL (0.60-1.20); Globulin, Blood 3.6 g/dL (2.2-4.0); Glomerular Filtration Rate >60 (60-); Glucose, Blood 103 mg/dL (70-99); Magnesium, Blood 2.2 mg/dL (1.6-2.4); Phosphorus, Blood 3.4 mg/dL (2.5-4.9); Potassium, Blood 3.4 mmol/L (3.5-5.5); Sodium, Blood 140 mmol/L (136-145); Total Protein, Blood 6.2 g/dL (6.4-8.2)
--- NOTE | 2021-02-13 06:16 | NUR ---
SHIFT SUMMARY AFTER STARTING PRECEDEX DRIP PT SLEPT WELL THRU REST OF NIGHT. RECENTLY HAS BECOME QUITE AGITATED AFTER TURNING OFF PRECEDEX FOR AGITATION, BACK TO 0.3 MCG/KG/HR. VSS. ASSESSMENT IS CHARTED. WILL CONTINUE TO MONITOR.
--- NOTE | 2021-02-13 08:15 | NUR ---
ASSUMED CARE PT RESTING IN BED COMFORTABLY AT THIS TIME. IN LANETTE AND SBW DUE TO TRYING TO EXIT THE BED FREQUENTLY. PG TO KARLEY INFUSING PRECEDEX 0.3MCG/KG. SLEEPING THOUGH EASILY AROUSABLE, CONFUSED THOUGH REDIRECTABLE, STATES THAT HE IS SEEING A BOAT WHEN HE CLOSES HIS EYES. GETS AGITATED WITH NURSING CARE. 6L VIA VENTI MASK DUE TO RUBENS, SAT >90%. STRONG VALUATION CONSULTANT BUE, WEAK BLE. CAMPOVERDE CATH PATENT AND DRAINING DARK YELLOW URINE WITH LARGE AMOUNTS OF BLOODY SEDIMENT. PT REMAINS NPO, CLINIMIX ON SB AT THIS TIME. VS STABLE. WILL CONTINUE TO MONITOR.
[2021-02-13 08:34] LABS: PCO2 Arterial 48.8 mmHg (35-45); PO2 Arterial 48.8 mmHg (80-100); pH Blood Arterial 7.38 (7.35-7.45)
--- NOTE | 2021-02-13 10:25 | NUR ---
UPDATE PT REMAINS AGITATED AND TRYING TO EXIT THE BED AND PULL AT LINES/TUBES. PRECEDEX AT 0.5 MCG/KG AT THIS TIME. PICC LINE IN PLACE TO LESLYE, CLINIMIX RESTARTED AT 100ML/HR. PT PLACED ON 6L VIA NC. WILL CONTINUE TO MONITOR.
--- NOTE | 2021-02-13 13:00 | NUR ---
CODE ARANGO PT FOUND TO HAVE SLID SELF DOWN IN BED, WITH LEGS HANGING OFF BEDSIDE. LANETTE VEST UP AROUND PT NECK AND ARMS IN SBW RESTRAINTS ABOVE HEAD. PT IS AGITATED AND THRASHING AROUND IN BED. CODE ARANGO CALLED. PT SLID BACK UP IN BED. PRECEDEX INCREASED TO 1.0 MCG/KG/HR. PT ABLE TO BE DEESCALATED AND STOPPED THRASHING IN BED. LANETTE VEST AND SBW RESTRAINTS RESECURED. PT MED WITH IM ZYPREXA. DR MARTELL AWARE. WILL CONTINUE TO MONITOR.
--- NOTE | 2021-02-13 16:53 | NUR ---
SHIFT SUMMARY PT RESTING IN BED COMFORTABLY AT THIS TIME. PT BECOMES AGITATED WITH NURSING CARE. SEE CODE ARANGO NOTE. CURRENTLY SEDATED WITH PRECEDEX 1.4MCG/KG INFUSING TO LESLYE PICC. PT REMAINS NPO. CLINIMIX INFUSING AT 100ML/HR WITH LIPIDS. PT REPEATEDLY TRIED TO EXIT THE BED TODAY. IN LANETTE AND 4 POINT RESTRAINTS AT THIS TIME. CAMPOVERDE PATENT AND DRAINING YELLOW URINE WITH SEDIMENT TO GRAVITY. 6L VIA NC SAT >90%. VS STABLE. WILL CONTINUE TO MONITOR.
--- NOTE | 2021-02-13 18:00 | NUR ---
DOCUMENTATION REVIEW ALL ASSESSMENTS AND NOTES FROM THIS SHIFT REVIEWED. I AGREE WITH FINGERNAIL SCULPTOR DOCUMENTATION THIS SHIFT.
--- NOTE | 2021-02-13 19:30 | NUR ---
ASSUMED CARE OF PT, HE IS NOTED RESTING QUIETLY AT THIS TIME WITH HOB ELEVATED, SATS MAINTAINING WITH OXYGEN VIA NASAL CANNULA AT 5 L/MIN, NO VISIBLE INCREASED WORK OF BREATHING IS NOTED, SOFT RESTRAINTS IN PLACE TO EXTREMITIES X 4, LANETTE VEST RESTRAINT IN PLACE, PRECEDEX AT 1.4 MCG/KG/HR, CAMPOVERDE IN PLACE DRAINING YELLOW URINE WITH SEDIMENT IN TUBING. PRESSURES NOTED HYPERTENSIVE, WILL MONITOR, HEART RATE BRADYCARDIC TO NORMAL SINUS RHYTHM, RATE HIGH 50S, LOW 60S, WILL MONITOR.
[2021-02-14 04:55] LABS: Hematocrit 32.9 % (37.0-53.0); Hemoglobin 10.9 g/dL (13.5-17.5); Mean Corpuscular HGB Conc 33.1 g/dL (31.5-36.5); Mean Corpuscular Volume 91 fL (80-100); Mean Platelet Volume 10.3 fL (9.1-12.4); Platelet Count 259 K/mm3 (150-400); RDW Coefficient Variation 14.1 % (11.7-14.2); RDW Standard Deviation 45.4 fL (35.1-46.3); Red Blood Cell Count 3.63 M/mm3 (4.30-5.90)
[2021-02-14 05:13] LABS: Alanine Aminotransfer (ALT/SGP 15 U/L (12-78); Albumin, Blood 2.5 g/dL (3.4-5.0); Albumin/Globulin Ratio 0.7 (0.8-1.8); Alk Phos 59 U/L (50-136); Anion Gap 4 mmol/L (6-16); Aspartate Aminotrans (AST/SGOT 11 U/L (12-37); Bilirubin, Total 0.4 mg/dL (0.1-1.0); Blood Urea Nitrogen 15 mg/dL (8-24); Bun/Creatinine Ratio 20.7 (12.0-20.0); CO2, Blood 28 mmol/L (21-32); Calcium, Blood 8.1 mg/dL (8.5-10.1); Chloride, Blood 113 mmol/L (98-108); Creatinine, Blood 0.73 mg/dL (0.60-1.20); Globulin, Blood 3.4 g/dL (2.2-4.0); Glomerular Filtration Rate >60 (60-); Glucose, Blood 125 mg/dL (70-99); Magnesium, Blood 2.3 mg/dL (1.6-2.4); Phosphorus, Blood 2.8 mg/dL (2.5-4.9); Potassium, Blood 3.7 mmol/L (3.5-5.5); Sodium, Blood 145 mmol/L (136-145); Total Protein, Blood 5.9 g/dL (6.4-8.2)
--- NOTE | 2021-02-14 06:46 | NUR ---
PT RESTS QUIETLY THROUGHOUT SHIFT, CONTINUES TO BE RESPONSIVE TO VERBAL STIMULI HOWEVER RESPONSES ARE MUMBLED AND DIFFICULT TO UNDERSTAND, HE HAS COMPLAINED OF DRY MOUTH THIS SHIFT AND COOPERATED WITH AND TOLERATED ORAL CARE WELL. HE HAS ALSO COMPLAINED OF FEELING COLD. HE STATES THAT HE CAN REMEMBER WHERE HE IS HOWEVER WHEN ASKED TO STATE HIS LOCATION, HE DOES NOT ANSWER, THIS RN EXPLAINED TO HIM THAT STATING HIS LOCATION WILL PROVE THAT HE KNOWS HIS LOCATION HOWEVER PT CONTINUES TO NOT ANSWER. ATTEMPTED TO TITRATE PRECEDEX DOWN TO 1.3 MCG/KG/HR RESULTED IN PT SITTING UP IN BED, PULLING HARD AGAINST RESTRAINTS AND KICKING WITHOUT BEING REDIRECTABLE, PRECEDEX WAS RETURNED TO 1.4 MCG/KG/HR AND REMAINED AT THAT RATE THE REST OF THIS SHIFT. SINUS RHYTHM WITH INCREASES IN ACTIVITY TO SINUS HUMA WITH REST AND RATES HIGH 50S, PRESSURES MAINTAINED THROUGHOUT NOC, INTERMITTENT HYPERTENSION IS NOTED AT TIMES PT IS PULLING AGAINST RESTRAINTS. HE HAS TOLERATED IM ZYPREXA WELL. HE DOES CONTINUE TO LIFT BUTTOCKS FULLY OFF OF BED AND REPOSITION HIMSELF WELL EVEN WITH RESTRAINTS IN PLACE.
--- NOTE | 2021-02-14 07:45 | NUR ---
ASSUMED CARE: REPORT RECEIVED FROM JOSÉ ANTONIO Humphries RN. ASSUMED CARE OF THIS PT AT APPROX 0700. ON ASSESSMENT, THE PT IS RESTING QUIETLY & AWAKENS TO VERBAL STIMULUS. HE IS CONFUSED, ASKING FOR "DIPTI" & "ANJUM." WHEN REMINDED THAT HE IS IN THE HOSPITAL HE REPLIES "I KNOW" BUT WILL NOT TELL THIS RN WHICH HOSPITAL HE IS IN OR ANSWER ANY OTHER ORIENTATION QUESTIONS. PRECEDEX INFUSING AT 1.4 MCG/KG/HR. PT ON 5L NC, TITRATED UP TO 7L NC & PLACED IN MOUTH WHILE PT SLEEPING, FOR DESATS TO 86%. O2 SATS IMPROVED, NOW > 92%. MONITOR SHOWS SR W/ HR 60s, BP STABLE. STRICT NPO R/T FAILED SWALLOW EVALS. CLINIMIX INFUSING PER EMAR. CAMPOVERDE PATENT/ DRAINING YELLOW URINE W/ COPTIOUS AMNTS RED SEDIMENT NOTED. PER REPORT, THE PT PULLED ON CATHETER YESTERDAY & RED SEDIMENT NOTED SINCE THAT TIME. SKIN CONDITION OVERALL CDI, THE PT LIFTS HIPS & REPOSITIONS SELF FOR COMFORT, Q2H REPOSITIONING TO BE COMPLETED WELL. WILL CONTINUE TO MONITOR & UPDATE NEEDED.
--- NOTE | 2021-02-14 11:45 | NUR ---
DR MARTELL: PROVIDER AT BEDSIDE TO [facility] PT THIS AM. SHE WOULD LIKE THE PT's CURRENT HOME MED LIST TO BE ACQUIRED FROM THE [facility]. THIS RN HAS SEND A FAX TO [facility] REGARDING THIS REQUEST FOR UPDATED MED REC. SHE WOULD ALSO LIKE THE PT's PRECEDEX TO BE TITRATED DOWN TOLERATED & BELIEVES THIS WILL BE EASIER ZYPREXA DOSES CONTINUE - SEE FLOWSHEET FOR TITRATION. NO OTHER CHANGES AT THIS TIME.
--- NOTE | 2021-02-14 18:07 | NUR ---
SHIFT SUMMARY: NO ACUTE CHANGES SINCE PRIOR UPDATES. PT REMAINS CONFUSED OVERALL BUT SEEMS TO BE CLEARING SOME, OCCASIONALLY ASKING APPROPRIATE QUESTIONS & FOLLOWING SOME DIRECTIONS. PRECEDEX INFUSING AT 0.9 MCG/KG/HR. HE IS GENERALLY NOTED TO BE RESTING BUT WHEN AWAKENING SUDDENLY BECOMES IMPULSIVE & ATTEMPTS TO GET OOB/ PULL AT LINES. RESTRAINTS DOCUMENTED. 5L NC W/ O2 SATS > 95% ON AVG. MONITOR SHOWS SB-SR W/ HR 50-60s, BP STABLE. STRICT NPO R/T FAILED SPEECH EVALS. ST PLANS TO SEE THE PT TOMORROW FOR REPEAT EVAL. Q4H SCHEDULED ORAL CARE R/T NPO STATUS & THE PT IS TOLERATING THIS WELL. CAMPOVERDE PATENT/ DRAINING DARK YELLOW URINE W/ COPIOUS AMNTS SEDIMENT NOTED. SKIN CONDITION OVERALL CDI, Q2H REPOSITIONING COMPLETED THIS SHIFT. WILL CONTINUE TO MONITOR & REPORT OFF TO ONCOMING RN.
--- NOTE | 2021-02-14 19:16 | NUR ---
Spiritual care note: Augustus is still not lucid enough for conversation. I will contiue to attempt visit in coming days. Pt and family are known to me from community. Family requests debate director support and cousel.
[2021-02-14 20:41] LABS: Vancomycin, Trough 13.9 ug/mL (5.0-10.0)
--- NOTE | 2021-02-14 22:33 | NUR ---
ASSUMED CARE. BEDSIDE REPORT RECIEVED. PATIENT RESTING QUIETLY. SWB RESTRAINTS IN PLACE. PRECEDEX RUNNING AT 0.8 MCG/KG/HR. CAMPOVERDE CATHETER IN PLACE, DRAINING SUMMER URINE. PT VITAL SIGNS STABLE, NO ACUTE NEEDS NOTED AT THIS TIME.
[2021-02-15 04:57] LABS: BASOPHILS ABSOLUTE AUTO 0.05 K/mm3 (0.00-0.23); BASOPHILS PERCENT AUTO 0 % (0-2); EOSINOPHILS ABSOLUTE AUTO 0.27 K/mm3 (0.00-0.68); EOSINOPHILS PERCENT AUTO 2 % (0-6); Hemoglobin 10.7 g/dL (13.5-17.5); IMMATURE GRAN ABSOLUTE AUTO 0.12 K/mm3 (0.00-0.10); IMMATURE GRAN PERCENT AUTO 1 % (0-1); LYMPHOCYTES ABSOLUTE AUTO 2.94 K/mm3 (0.84-5.20); LYMPHOCYTES PERCENT AUTO 24 % (21-46); MONOCYTES ABSOLUTE AUTO 0.83 K/mm3 (0.16-1.47); MONOCYTES PERCENT AUTO 7 % (4-13); Mean Corpuscular HGB 30.5 pg (26.0-34.0); Mean Corpuscular HGB Conc 33.4 g/dL (31.5-36.5); Mean Corpuscular Volume 91 fL (80-100); Mean Platelet Volume 10.6 fL (9.1-12.4); NEUTROPHILS ABSOLUTE AUTO 8.02 K/mm3 (1.96-9.15); NEUTROPHILS PERCENT AUTO 66 % (41-73); Platelet Count 233 K/mm3 (150-400); RDW Coefficient Variation 14.1 % (11.7-14.2); RDW Standard Deviation 45.2 fL (35.1-46.3); Red Blood Cell Count 3.51 M/mm3 (4.30-5.90); White Blood Cell Count 12.23 K/mm3 (4.00-11.30)
[2021-02-15 05:14] LABS: Albumin, Blood 2.3 g/dL (3.4-5.0); Anion Gap 4 mmol/L (6-16); Blood Urea Nitrogen 17 mg/dL (8-24); Bun/Creatinine Ratio 22.6 (12.0-20.0); CO2, Blood 27 mmol/L (21-32); Calcium, Blood 7.9 mg/dL (8.5-10.1); Chloride, Blood 112 mmol/L (98-108); Creatinine, Blood 0.75 mg/dL (0.60-1.20); Glomerular Filtration Rate >60 (60-); Glucose, Blood 106 mg/dL (70-99); Phosphorus, Blood 2.9 mg/dL (2.5-4.9); Potassium, Blood 3.4 mmol/L (3.5-5.5); Sodium, Blood 143 mmol/L (136-145)
--- NOTE | 2021-02-15 06:51 | NUR ---
SHIFT SUMMARY. PATIENT RESTED QUIETLY THROUGHOUT SHIFT. STARTED NIGHT WITH PRECEDEX RUNNING AT 0.8 MCG/KG/HR AND BILATERAL WRIST AND ANKLE RESTRAINTS IN PLACE. PRECEDEX NOW AT 0.6 MCG/KG/HR WITH WRIST AND ANKLE RESTRAINTS DC'D FOR IMPROVEMENT IN ORIENTATION/MENTATION. LANETTE VEST REMAINS IN PLACE TO PREVENT PT FROM ATTEMPTING TO GET OUT OF BED. PATIENT FOLLOWS COMMANDS AND IS ORIENTED TO SELF/SURROUNDINGS. NC IN PLACE, 2 L/MIN. CAMPOVERDE CATHETER IN PLACE, DRAINING SUMMER URINE W/SOME SEDIMENT. PT HAS PRODUCTIVE COUGH WITH THICK, DARK GREEN SPUTUM. NO BM THIS SHIFT. VITAL SIGNS REMAINED STABLE DURING SHIFT.
--- NOTE | 2021-02-15 07:50 | NUR ---
ASSUMED CARE: REPORT RECEIVED FROM JAMIE Garcia, KNITTING MACHINE FIXER, & JOSÉ ANTONIO Humphries, RN. ASSUMED CARE OF THIS PT AT APPROX 0700. ON ASSESSMENT, THE PT IS RESTING QUIETLY. HE AWAKENS EASILY TO VERBAL STIMULUS & IS ABLE TO TELL THIS RN THAT HE IS AT THE "HOSPITAL IN [place]" & THAT IT IS "THE FIFTH MONTH." HE IS ALSO FOLLOWING DIRECTIONS & ASKING FOR HELP APPROPRIATELY. PT ON 2L NC W/ O2 SATS > 92%, HE HAS AN OCCASIONAL COUGH W/ SMALL AMNT OF SPUTUM PRODUCTION. MONITOR SHOWS SR W/ HR 70s, BP STABLE. STRICT NPO R/T FAILED SPEECH EVALS. CAMPOVERDE PATENT/ DRAINING SUMMER URINE W/ DARK SEDIMENT NOTED. SKIN CONDITION OVERALL CDI W/ PT REPOSITIONING HIMSELF FOR COMFORT FREQUENTLY. WILL CONTINUE TO MONITOR & UPDATE NEEDED.
--- NOTE | 2021-02-15 10:00 | NUR ---
DR MARTELL: PROVIDER AT BEDSIDE TO [facility] PT THIS AM. SHE STS SHE WILL CONSIDER A STATUS CHANGE FOR THIS PT IF PRECEDEX CAN BE SUCCESSFULLY TITRATED OFF. UPDATED PROVIDER ON RESULTS OF SPEECH [facility] & SHE STS THAT ON[facility], WE MAY RESTART THE PT's HOME MEDICATIONS. NO OTHER CHANGES AT THIS TIME.
--- NOTE | 2021-02-15 14:37 | NUR ---
EDIT A NOTE WAS SUPPOSED TO BE ENTERED IN ON 02/09/21 AT 1702, BUT IT WAS MISTAKENLY ENTERED IN TO THE WRONG PATIENT - THIS WAS THE UPDATE MEANT FOR THIS PT ON THAT TIME: "UPDATE AT BEDSIDE, PT DIDN'T SEEM TO RECOGNIZE HER AT FIRST, BUT HE HAS BEEN LETHARGIC, SLEEPING SINCE LAST DOSE OF ATIVAN. PRECEDEX WAS SUBSEQUENTLY TURNED DOWN TO 0.5 MCG/KG/HR. CIWA < 8 CURRENTLY, WHILE HE IS SLEEPING AND EVEN AWAKE PT IS CALM. HE HAS BEEN INTERMITTENTLY REQUIRING 2L NC WHILE ASLEEP, SPO2 DIPS TO 86-90% (BUT OFTEN WILL COME BACK UP ON ITS OWN, AND FAIRLY QUICKLY). WILL CONTINUE TO MONITOR. PT DOING WELL IN LANETTE/VEST ONLY (SWB RESTRAINTS HAVE BEEN OFF SINCE 1429), HE IS NOT ATTEMPTING TO PULL ON ANY LINES, CHORDS, OR TUBES. SINCE SWB RESTRAINTS HAVE BEEN REMOVED - PT IS LESS ANXIOUS/PARANOID."
--- NOTE | 2021-02-15 15:10 | NUR ---
STATUS CHANGE: CALL TO PROVIDER DR MARTELL REGARDING PT's IMPROVING STATUS. NOTIFIED HER THAT THE PT HAS BEEN OFF PRECEDEX & OUT OF RESTRAINTS FOR MULTIPLE HOURS NOW & REQUESTED STATUS CHANGE. SHE STS OKAY FOR PT TO BE MEDICAL W/ NO TELE. ORDERS PLACED.
--- NOTE | 2021-02-15 17:54 | NUR ---
Spiritual care note: Augustus was still quite sleepy today, but apeared more lucid and was able to have a brief conversation with me. He remembered me from previous hospitalizations for same. He states that he knows "what to do" and plans on getting back into the program of AA. That said, he does not appear to grasp that each time he goes back to drinking, he does a bit more damage and it takes longer for him to "clear." A careful, clear explaination of what continued ETOH use will do may be beneficial once he is more awake. Regardless, he was appreciative of prayer and encouragement. I will remain available.
--- NOTE | 2021-02-15 18:28 | NUR ---
SHIFT SUMMARY: NO ACUTE CHANGES SINCE PRIOR UPDATES. PT REMAINS A&O, PLEASANT & COOPERATIVE THIS AFTERNOON. LANETTE VEST REMAINS OFF & PT IS USING CALL LIGHT APPROPRIATELY. PT NOW ON RA W/ O2 SATS > 92%. MONITOR SHOWS SR W/ HR 70s, BP STABLE. HE IS TOLERATING SMALL AMNTS OF PO INTAKE WELL BUT DOES HAVE INTERMITTENT C/O HEARTBURN AT TIMES. CAMPOVERDE PATENT/ DRAINING YELLOW URINE W/ IMPROVED OUTPUT NOTED. SKIN CONDITION OVERALL CDI, PT REPOSITIONS SELF W/O DIFFICULTY. WILL CONTINUE TO MONITOR & REPORT OFF TO ONCOMING RN.
--- NOTE | 2021-02-15 20:20 | NUR ---
ASSUMPTION OF CARE RECEIVED REPORT FROM DENVER ROBIN AT 1915. ASSUMED CARE OF PATIENT. PATIENT SITTING UP IN BED, A/O. WATCHING JEOPARDY, REVIEWING EVENTS AND CONVERSATIONS THAT OCCURED DURING DAY SHIFT. PATIENT UNDERSTANDING OF HIS CARE. DENIED NEEDS OR DISCOMFORTS. VITALS STABLE, REVIEWED ORDERS, WILL TREAT PRESCRIBED.
--- NOTE | 2021-02-15 21:40 | NUR ---
TRANSFER REPORT GIVEN TO MARIE ROBIN. PATIENT TO TRANSFER TO MEDICAL FLOOR VIA W/C ASSISTED BY TWILA KAY. PATIENT TOOK HS MEDS CRUSHED IN APPLESAUCE WITH NO DIFFICULTIES.
--- NOTE | 2021-02-15 21:40 | NUR ---
transfer report recieved from FINISHING MACHINE OPERATOR AUTOMATICLOBITO Wetzel on 70 year old MAle being transferred to room 353 . He has spent 2 weeks in ICU with ETOH WD Resp failure & is reportedly now on room air & stable & alert off presidex GTT. He was restrained not all day . Droplet contact for MRSA in SPutum. Await transfer.
[2021-02-16 07:11] LABS: Hematocrit 30.9 % (37.0-53.0); Hemoglobin 10.4 g/dL (13.5-17.5); Mean Corpuscular HGB 30.1 pg (26.0-34.0); Mean Corpuscular HGB Conc 33.7 g/dL (31.5-36.5); Mean Corpuscular Volume 90 fL (80-100); Mean Platelet Volume 10.8 fL (9.1-12.4); Platelet Count 255 K/mm3 (150-400); RDW Coefficient Variation 14.1 % (11.7-14.2); RDW Standard Deviation 45.1 fL (35.1-46.3); Red Blood Cell Count 3.45 M/mm3 (4.30-5.90); White Blood Cell Count 9.54 K/mm3 (4.00-11.30)
--- NOTE | 2021-02-16 07:14 | NUR ---
PT [employer] 7 YEARS WITH 7 YEARS SOBRIETY PRIOR TO [facility] WHEN HE BEGAN DRINKING VODKA UP TO 1 FIFTH A DAY. PROLONGED WITHDRAWL AFTER GI BLEED. ALERT FOR ME SLIGHTLY ANXIOUS. 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 ENCOURAGED ETOH CESSATION. PT IN DROPLET ISO FOR MRSA POSITIVE SPUTUM. CONTINUE TO ASSESS.
[2021-02-16 07:44] LABS: Albumin, Blood 2.3 g/dL (3.4-5.0); Anion Gap 6 mmol/L (6-16); Blood Urea Nitrogen 11 mg/dL (8-24); Bun/Creatinine Ratio 13.2 (12.0-20.0); CO2, Blood 25 mmol/L (21-32); Calcium, Blood 7.9 mg/dL (8.5-10.1); Chloride, Blood 113 mmol/L (98-108); Creatinine, Blood 0.84 mg/dL (0.60-1.20); Glomerular Filtration Rate >60 (60-); Glucose, Blood 85 mg/dL (70-99); Phosphorus, Blood 3.7 mg/dL (2.5-4.9); Potassium, Blood 3.3 mmol/L (3.5-5.5); Sodium, Blood 144 mmol/L (136-145)
--- NOTE | 2021-02-16 17:56 | NUR ---
Augustus was lucid today and talkative. We spoke about some of his life story and he responded well to gentle school counsellor/encouragement. He tells me he is hopeful for recovery. Rug Washer services will remain available.
--- NOTE | 2021-02-17 05:50 | NUR ---
PT with alcohol withdrawl prolonged ICU stay continues stable for this shift. 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 He then returned to alcohol dependence with daily vodka drinking. Had GI bleed which has resolved. He continues with heartburn relieved by PRN tums. On proton pump inhibitor. Current MRSA in Sputum, new per PT report. On vancomycin IV Q 12 hrs to treat. PT has lt upper arm PICC & had RT UA powerglide which I DC this am cannula intact. On remote camera monitoring & he alternates between using FWW & forgetting to use FWW. Room air, loose nonprod cough.
[2021-02-17 08:26] LABS: Vancomycin, Trough 17.4 ug/mL (5.0-10.0)
[2021-02-17] MEDS ORDERED: METO25 PO (11:56)
[2021-02-17] MEDS ORDERED: VISBIOME 112.51 EACH PO (11:57)
[2021-02-17] MEDS ORDERED: SPIRIVA RESPIMAT4 G3 INH (11:57)
[2021-02-17] MEDS ORDERED: Aspir 8181 MG PO (11:58)
[2021-02-17] MEDS ORDERED: SULTRIDS PO (11:59)
--- NOTE | 2021-02-17 13:16 | NUR ---
PATIENT DISCHARGED AT 1315. THE PATIENT'S SO IS HERE TO PICK HIM UP AT THE ER ENTRANCE. PICC LINE REMOVED.
== END 2021-02-17 13:15 | disposition home health service (06) | DRG 871 ==
LOC: ER 11:05 → ICUW 15:31 → MEDS 02-15 21:46 → ENPENDDIS 02-17 11:55 → MEDS 02-17 13:15
PROVIDERS: Emergency Medicine; Internal Medicine; ADMIT Family Medicine
PROC: HZ2ZZZZ Detoxification Services for Substance Abuse Treatment (ICD-10-PCS; principal; 2021-02-03)
DX: A41.02 Sepsis due to Methicillin resistant Staphylococcus aureus (principal); J15.212 Pneumonia due to Methicillin resistant Staphylococcus aureus; R65.21 Severe sepsis with septic shock; J69.0 Pneumonitis due to inhalation of food and vomit; J96.21 Acute and chronic respiratory failure with hypoxia; G93.41 Metabolic encephalopathy; G92 Toxic encephalopathy; K92.0 Hematemesis; J44.0 Chronic obstructive pulmonary disease with (acute) lower respiratory infection; F10.131 Alcohol abuse with withdrawal delirium; Z20.822 Contact with and (suspected) exposure to COVID-19; I48.0 Paroxysmal atrial fibrillation; E87.6 Hypokalemia; E83.39 Other disorders of phosphorus metabolism; R13.10 Dysphagia, unspecified; I10 Essential (primary) hypertension; M19.90 Unspecified osteoarthritis, unspecified site; Z68.29 Body mass index [BMI] 29.0-29.9, adult; F42.9 Obsessive-compulsive disorder, unspecified; E66.9 Obesity, unspecified; F41.9 Anxiety disorder, unspecified; F32.9 Major depressive disorder, single episode, unspecified; B18.2 Chronic viral hepatitis C; F43.10 Post-traumatic stress disorder, unspecified; H93.19 Tinnitus, unspecified ear; K21.9 Gastro-esophageal reflux disease without esophagitis; F17.210 Nicotine dependence, cigarettes, uncomplicated; G47.30 Sleep apnea, unspecified; G40.909 Epilepsy, unspecified, not intractable, without status epilepticus; Z79.899 Other long term (current) drug therapy; Z98.890 Other specified postprocedural states
CPT/HCPCS: 0241U; 36415; 36569; 36600; 51702; 71045; 80048; 80053; 80069; 80202; 82272; 82803; 82947; 83605; 83690; 83735; 84100; 84145; 84478; 85025; 85027; 86850; 86900; 86901; 87040; 87070; 87077; 87147; 87186; 87205; 92526; 92610; 93005; 93010; 93306; 94640; 94762; 96374-59; 96375-59; 96376-59; 97110; 97116; 97162; 97166; 97530; 97535; 99285-25; A9270; C1751; C9113; G0480; J0360; J0610; J1630; J1650; J1940; J1956; J2060; J2405; J2543; J2560; J2765; J3370; J3411; J3475; J3480; J7030; J7042; J7050; J7060

== ENCOUNTER 2021-09-09 16:29 | Emergency (ER) | payer OTHER ==
[~2021-09-09 16:29] MED LIST changes: +Aspir 8181 MG PO; +METO25 PO; +SPIRIVA RESPIMAT4 G3 INH; +SULTRIDS PO; +VISBIOME 112.51 EACH PO
== END 2021-09-09 17:26 | disposition left against medical advice (07) ==
LOC: ER 16:29
DX: Z53.21 Procedure and treatment not carried out due to patient leaving prior to being seen by health care provider (principal)

== ENCOUNTER 2021-09-12 16:54 | Observation (INO) | payer OTHER ==
[~2021-09-12] VITALS: Ht 175.3 cm; Wt 86.2 kg
[2021-09-12 18:37] LABS: BASOPHILS ABSOLUTE AUTO 0.07 K/mm3 (0.00-0.23); BASOPHILS PERCENT AUTO 1 % (0-2); EOSINOPHILS PERCENT AUTO 1 % (0-6); Hematocrit 39.5 % (37.0-53.0); Hemoglobin 13.5 g/dL (13.5-17.5); IMMATURE GRAN ABSOLUTE AUTO 0.04 K/mm3 (0.00-0.10); IMMATURE GRAN PERCENT AUTO 0 % (0-1); LYMPHOCYTES ABSOLUTE AUTO 3.84 K/mm3 (0.84-5.20); LYMPHOCYTES PERCENT AUTO 41 % (21-46); MONOCYTES ABSOLUTE AUTO 0.49 K/mm3 (0.16-1.47); MONOCYTES PERCENT AUTO 5 % (4-13); Mean Corpuscular HGB 30.1 pg (26.0-34.0); Mean Corpuscular HGB Conc 34.2 g/dL (31.5-36.5); Mean Corpuscular Volume 88 fL (80-100); Mean Platelet Volume 10.4 fL (9.1-12.4); NEUTROPHILS ABSOLUTE AUTO 4.89 K/mm3 (1.96-9.15); NEUTROPHILS PERCENT AUTO 52 % (41-73); Platelet Count 288 K/mm3 (150-400); RDW Coefficient Variation 13.4 % (11.7-14.2); RDW Standard Deviation 43.2 fL (35.1-46.3); Red Blood Cell Count 4.48 M/mm3 (4.30-5.90); White Blood Cell Count 9.43 K/mm3 (4.00-11.30)
[2021-09-12 19:19] LABS: U Amphetamine Screen Not Detected; U Barbituate Screen Not Detected; U Benzodiazapine Screen Not Detected; U Buprenorphine Screen Not Detected; U Cannabinoids Screen Not Detected; U Cocaine Screen Not Detected; U Methadone Screen Not Detected; U Methamphetamine Screen Not Detected; U Opiates Screen Not Detected; U Oxycodone Screen Not Detected; U Phencyclidine Screen Not Detected; U Propoxyphene Screen Not Detected
[2021-09-12 19:25] LABS: Acetaminophen, Random <2.0 ug/mL (10.0-30.0); Alanine Aminotransfer (ALT/SGP 19 U/L (12-78); Albumin, Blood 3.3 g/dL (3.4-5.0); Albumin/Globulin Ratio 0.9 (0.8-1.8); Alk Phos 80 U/L (50-136); Anion Gap 8 mmol/L (6-16); Aspartate Aminotrans (AST/SGOT 21 U/L (12-37); Bilirubin, Total 0.3 mg/dL (0.1-1.0); Blood Urea Nitrogen 10 mg/dL (8-24); Bun/Creatinine Ratio 10.8 (12.0-20.0); CO2, Blood 23 mmol/L (21-32); Calcium, Blood 8.6 mg/dL (8.5-10.1); Chloride, Blood 113 mmol/L (98-108); Creatinine, Blood 0.93 mg/dL (0.60-1.20); Ethanol (Alcohol), Blood, Med 181 mg/dL; Globulin, Blood 3.8 g/dL (2.2-4.0); Glomerular Filtration Rate >60 (60-); Glucose, Blood 94 mg/dL (70-99); Potassium, Blood 3.4 mmol/L (3.5-5.5); Salicylate 3.1 mg/dL (2.8-20.0); Sodium, Blood 144 mmol/L (136-145); Total Protein, Blood 7.1 g/dL (6.4-8.2)
[2021-09-12 19:39] LABS: Influenza A, PCR NEGATIVE (NEGATIVE); Influenza B, PCR NEGATIVE (NEGATIVE); Resp Syncytial Virus, PCR NEGATIVE (NEGATIVE); SARS-Cov-2 (COVID-19) PCR, MMC NEGATIVE (NEGATIVE)
[2021-09-12] MEDS ORDERED: SPIRIVA RESPIMAT4 G3 INH (21:34)
[2021-09-12] MEDS ORDERED: GABAPENTIN600 MG PO (21:35)
[2021-09-12] MEDS ORDERED: VITAMIN D325 MC3 PO (21:37)
[2021-09-12] MEDS ORDERED: B-121000 MC3 PO (21:38)
[2021-09-12] MEDS ORDERED: MULTIPLE VITAM1 EACH PO (21:38)
[2021-09-12] MEDS ORDERED: ATOR10 PO (21:39)
[2021-09-12] MEDS ORDERED: SYMBICORT 80-10.2 GM INH (21:40)
[2021-09-12] MEDS ORDERED: FLONASE ALLERG9.9 M2 (21:41)
[2021-10-14] MEDS ORDERED: CHLO25 PO (01:00)
== END 2021-09-13 12:30 | disposition home or self-care (01) ==
LOC: ER 16:54 → EOR 16:55
PROVIDERS: ADMIT Emergency Medicine
DX: F10.129 Alcohol abuse with intoxication, unspecified (principal); Y90.6 Blood alcohol level of 120-199 mg/100 ml; R45.851 Suicidal ideations; F17.210 Nicotine dependence, cigarettes, uncomplicated; I10 Essential (primary) hypertension; K21.9 Gastro-esophageal reflux disease without esophagitis; G47.30 Sleep apnea, unspecified; G40.909 Epilepsy, unspecified, not intractable, without status epilepticus; Z79.899 Other long term (current) drug therapy; Z79.82 Long term (current) use of aspirin; Z20.822 Contact with and (suspected) exposure to COVID-19
CPT/HCPCS: 0241U; 36415; 80053; 85025; 93005; 93010; 96374; 99285-25; A9270; G0378; G0480; J2060; J7030

== ENCOUNTER 2022-11-10 16:28 | Observation (INO) | payer OTHER ==
[~2022-11-10] VITALS: Ht 175.3 cm; Wt 89.4 kg
[~2022-11-10 16:28] MED LIST changes: +ATOR10 PO; +B-121000 MC3 PO; +FLONASE ALLERG9.9 M2; +GABAPENTIN600 MG PO; +MULTIPLE VITAM1 EACH PO; +SYMBICORT 80-10.2 GM INH; +VITAMIN D325 MC3 PO
[2022-11-10 17:32] LABS: U Amphetamine Screen Not Detected; U Barbituate Screen Not Detected; U Benzodiazapine Screen Not Detected; U Buprenorphine Screen Not Detected; U Cannabinoids Screen Not Detected; U Cocaine Screen Not Detected; U Methadone Screen Not Detected; U Methamphetamine Screen Not Detected; U Opiates Screen Not Detected; U Oxycodone Screen Not Detected; U Phencyclidine Screen Not Detected; U Propoxyphene Screen Not Detected
[2022-11-10 19:08] LABS: BASOPHILS ABSOLUTE AUTO 0.09 K/mm3 (0.00-0.23); BASOPHILS PERCENT AUTO 1 % (0-2); EOSINOPHILS ABSOLUTE AUTO 0.17 K/mm3 (0.00-0.68); EOSINOPHILS PERCENT AUTO 2 % (0-6); Hematocrit 43.6 % (37.0-53.0); Hemoglobin 15.2 g/dL (13.5-17.5); IMMATURE GRAN ABSOLUTE AUTO 0.07 K/mm3 (0.00-0.10); IMMATURE GRAN PERCENT AUTO 1 % (0-1); LYMPHOCYTES ABSOLUTE AUTO 5.18 K/mm3 (0.84-5.20); LYMPHOCYTES PERCENT AUTO 45 % (21-46); MONOCYTES ABSOLUTE AUTO 0.58 K/mm3 (0.16-1.47); MONOCYTES PERCENT AUTO 5 % (4-13); Mean Corpuscular HGB 30.3 pg (26.0-34.0); Mean Corpuscular HGB Conc 34.9 g/dL (31.5-36.5); Mean Corpuscular Volume 87 fL (80-100); Mean Platelet Volume 10.5 fL (9.1-12.4); NEUTROPHILS ABSOLUTE AUTO 5.32 K/mm3 (1.96-9.15); NEUTROPHILS PERCENT AUTO 47 % (41-73); Platelet Count 273 K/mm3 (150-400); RDW Coefficient Variation 12.6 % (11.7-14.2); RDW Standard Deviation 39.7 fL (35.1-46.3); Red Blood Cell Count 5.02 M/mm3 (4.30-5.90); White Blood Cell Count 11.41 K/mm3 (4.00-11.30)
[2022-11-10 19:27] LABS: Ethanol (Alcohol), Blood, Med 139 mg/dL; Salicylate 2.1 mg/dL (2.8-20.0); Thyroxine (T4) 10.2 ug/dL (4.5-12.1)
[2022-11-10 19:28] LABS: Alanine Aminotransfer (ALT/SGP 22 U/L (12-78); Albumin, Blood 3.5 g/dL (3.4-5.0); Alk Phos 75 U/L (50-136); Anion Gap 11 mmol/L (6-16); Aspartate Aminotrans (AST/SGOT 26 U/L (12-37); Bilirubin, Total 0.3 mg/dL (0.1-1.0); Blood Urea Nitrogen 9 mg/dL (8-24); Bun/Creatinine Ratio 8.6 (12.0-20.0); CO2, Blood 19 mmol/L (21-32); Calcium, Blood 8.9 mg/dL (8.5-10.1); Chloride, Blood 112 mmol/L (98-108); Creatinine, Blood 1.05 mg/dL (0.60-1.20); Globulin, Blood 3.5 g/dL (2.2-4.0); Glomerular Filtration Rate 76 (60-); Glucose, Blood 100 mg/dL (70-99); Potassium, Blood 3.5 mmol/L (3.5-5.5); Sodium, Blood 142 mmol/L (136-145)
[2022-11-10 19:29] LABS: Acetaminophen, Random <2.0 ug/mL (10.0-30.0)
[2022-11-10 19:30] LABS: Influenza A, PCR NEGATIVE (NEGATIVE); Influenza B, PCR NEGATIVE (NEGATIVE); Resp Syncytial Virus, PCR NEGATIVE (NEGATIVE); SARS-Cov-2 (COVID-19) PCR, MMC NEGATIVE (NEGATIVE)
== END 2022-11-11 11:02 | disposition home or self-care (01) ==
LOC: ER 16:28 → EOR 16:29
PROVIDERS: Emergency Medicine; ADMIT Emergency Medicine
DX: R45.851 Suicidal ideations (principal); F10.229 Alcohol dependence with intoxication, unspecified; M19.90 Unspecified osteoarthritis, unspecified site; F42.9 Obsessive-compulsive disorder, unspecified; I10 Essential (primary) hypertension; K21.9 Gastro-esophageal reflux disease without esophagitis; G47.30 Sleep apnea, unspecified; F17.210 Nicotine dependence, cigarettes, uncomplicated; G40.909 Epilepsy, unspecified, not intractable, without status epilepticus; Z91.199 Patient's noncompliance with other medical treatment and regimen due to unspecified reason; Z79.899 Other long term (current) drug therapy; Z79.51 Long term (current) use of inhaled steroids
CPT/HCPCS: 0241U; 36415; 80053; 84436; 85025; 96374; 99285-25; A9270; G0378; G0480; J2405

== ENCOUNTER 2024-12-08 13:38 | Observation (INO) | payer OTHER ==
[~2024-12-08] VITALS: Ht 175.3 cm; Wt 84.8 kg
[2024-12-08 15:01] LABS: BASOPHILS ABSOLUTE AUTO 0.05 K/mm3 (0.00-0.23); BASOPHILS PERCENT AUTO 1 % (0-2); EOSINOPHILS ABSOLUTE AUTO 0.26 K/mm3 (0.00-0.68); EOSINOPHILS PERCENT AUTO 3 % (0-6); Hematocrit 40.1 % (37.0-53.0); Hemoglobin 13.5 g/dL (13.5-17.5); IMMATURE GRAN ABSOLUTE AUTO 0.04 K/mm3 (0.00-0.10); IMMATURE GRAN PERCENT AUTO 1 % (0-1); LYMPHOCYTES ABSOLUTE AUTO 3.07 K/mm3 (0.84-5.20); LYMPHOCYTES PERCENT AUTO 35 % (21-46); MONOCYTES ABSOLUTE AUTO 0.58 K/mm3 (0.16-1.47); MONOCYTES PERCENT AUTO 7 % (4-13); Mean Corpuscular HGB 30.8 pg (26.0-34.0); Mean Corpuscular HGB Conc 33.7 g/dL (31.5-36.5); Mean Corpuscular Volume 91 fL (80-100); Mean Platelet Volume 10.3 fL (9.1-12.4); NEUTROPHILS ABSOLUTE AUTO 4.82 K/mm3 (1.96-9.15); NEUTROPHILS PERCENT AUTO 55 % (41-73); Platelet Count 268 K/mm3 (150-400); RDW Coefficient Variation 14.1 % (11.7-14.2); RDW Standard Deviation 47.5 fL (35.1-46.3); Red Blood Cell Count 4.39 M/mm3 (4.30-5.90); White Blood Cell Count 8.82 K/mm3 (4.00-11.30)
[2024-12-08 15:30] LABS: Albumin, Blood 3.6 g/dL (3.4-5.0); Albumin/Globulin Ratio 1.1 (0.8-1.8); Bilirubin, Total 0.7 mg/dL (0.1-1.0); Bun/Creatinine Ratio 13.5 (12.0-20.0); Calcium, Blood 8.5 mg/dL (8.5-10.1); Creatinine, Blood 0.89 mg/dL (0.60-1.20); Globulin, Blood 3.4 g/dL (2.2-4.0)
[2024-12-08] MEDS ORDERED: Ibuprofen 600 MG Tab PO ONE (18:20)
[2024-12-08] MEDS ORDERED: Aspirin 81 MG Chew PO ONE (18:20)
[2024-12-08] MEDS ORDERED: Ondansetron HCl 2 MG / ML 2ML Vial IV PRN (19:00)
[2024-12-08] MEDS ORDERED: Enoxaparin 40 MG/0.4 ML SYR SC SCH (19:00)
[2024-12-08] MEDS ORDERED: Atorvastatin 40 MG Tab PO SCH (19:00)
[2024-12-08] MEDS ORDERED: Clopidogrel Bisulfate 75 MG Tab PO SCH (19:00)
[2024-12-08] MEDS ORDERED: FLU VACC TS2024-25(6MOS UP)/PF 45 MCG/0.5 ML SYRINGE IM ONE (19:05)
[2024-12-08] MEDS ORDERED: NEURAPTINE30 GM (21:04)
[2024-12-08] MEDS ORDERED: GABA300 PO (21:41)
[2024-12-09 00:22] VITALS: BP 128/113
[2024-12-09] MEDS ORDERED: Acetaminophen 325 MG TABLET PO PRN (01:20)
[2024-12-09] MEDS ORDERED: Calcium Carbonate 500 MG Tab Chew PO PRN (01:20)
[2024-12-09] MEDS ORDERED: Melatonin 3 MG Tab PO ONE (01:25)
[2024-12-09] MEDS ORDERED: TraZODone HCl 50 MG Tab PO ONE (01:25)
--- NOTE | 2024-12-09 02:22 | NUR ---
TRANSFER SUMMARY: PT BROUGHT UP FROM ER BY WHEELCHAIR. PT AOX4 ABLE TO TRANSFER SELF IN BED. SOME BLISTERS ON RIGHT ARM FROM CONTRAST INFILTRATION AND SWOLLEN LEFT ARM FROM NS INFILTRATION PER ER NURSE. KERLEX AND EXUDRY PLACED OVER THE R ARM. PT MEDICATED FOR NIGHT TIME MEDS PER EMR. PT ORIENTED TO ROOM, RESTING IN BED, BED IN LOWEST POSITION, CALL LIGHT IN REACH. CONT CARE.
--- NOTE | 2024-12-09 04:12 | NUR ---
SHIFT SUMMARY: PT AOX4 IND TO THE BATHROOM. ABLE TO MAKE NEEDS KNOWN AND CALLS APPROPRIATELY. CAME UP FROM ED WITH BLISTERS ON RIGHT ARM WHERE IV CONTRAST INFILTRATED WHEN ATTEMPTING TO DO A CT W CONTRAST. PT STATES IT IS TENDER AND PAINFUL TO TOUCH BUT IS OKAY AT REST. EXUDRY AND KERLEX APPLIED. L ARM HAS SOME SWELLING FROM INFILTRATION OF ANOTHER IV PLACED IN ED THAT RAN NS. TENDER TO THE TOUCH BUT STILL ABLE TO MOVE AND NOT PAINFUL. PT PLEASANT MOOD AND COOPERATIVE IN CARE. PT SLEEPING IN BED, BED IN LOWEST POSITION, CALL LIGHT IN REACH. CONTINUING CARE.
[2024-12-09 04:37] VITALS: BP 117/67
--- NOTE | 2024-12-09 05:05 | NUR ---
NURSING NOTE: ATTEMPTED TO START IV, PT ARMS STILL VERY TENDER FROM PRIOR STARTS AND INFILTRATION IN THE ER. PT SCREAMED AND REFUSED IV WITH JUST A POKE. CHARGE NOTIFIED. ALLOWING PT TO SLEEP FOR NOW. CONTINUING CARE.
[2024-12-09 07:57] VITALS: BP 106/61
[2024-12-09] MEDS ORDERED: Metoprolol Tartrate 25 MG Tab PO SCH (09:00)
[2024-12-09] MEDS ORDERED: Gabapentin 300 MG Cap PO SCH (09:00)
[2024-12-09] MEDS ORDERED: Aspirin 81 MG Chew PO SCH (09:00)
[2024-12-09] MEDS ORDERED: Tiotropium Bromide 2.5 MCG/ACT MIST INHAL (10 ACT/4 GM) INH SCH (09:55)
[2024-12-09] MEDS ORDERED: Mometasone/Formoterol MDI 200/5 mcg 13 GM INH SCH (09:55)
[2024-12-09] MEDS ORDERED: Albuterol HFA200 ACT/6.7 GM INH INH PRN (09:55)
[2024-12-09 12:22] VITALS: BP 107/72
[2024-12-09] MEDS ORDERED: ATOR20 PO (16:00)
[2024-12-09] MEDS ORDERED: CLOP75 PO (16:01)
[2024-12-09] MEDS ORDERED: PANT20 PO (16:02)
--- NOTE | 2024-12-09 17:42 | NUR ---
DC-1630 PT LEFT IN STABLE CONDITION WITH ALL BELONGINGS VIA TRANSPORT IN PERSONAL VEHICLE.
[2024-12-09] MEDS ORDERED: TraZODone HCl 100 MG Tab PO SCH (21:00)
[2024-12-09] MEDS ORDERED: Melatonin 3 MG Tab PO SCH (21:00)
== END 2024-12-09 16:40 | disposition home or self-care (01) ==
LOC: ER 13:38 → MEDS 13:39 → ERHOLD 13:39 → MEDS 12-09 00:05
PROVIDERS: Physician Assistant; ADMIT Internal Medicine
DX: G45.9 Transient cerebral ischemic attack, unspecified (principal); I10 Essential (primary) hypertension; J44.9 Chronic obstructive pulmonary disease, unspecified; K21.9 Gastro-esophageal reflux disease without esophagitis; G47.30 Sleep apnea, unspecified; I48.91 Unspecified atrial fibrillation; G40.909 Epilepsy, unspecified, not intractable, without status epilepticus; F43.10 Post-traumatic stress disorder, unspecified; Z79.899 Other long term (current) drug therapy
CPT/HCPCS: 70450; 80053; 85025; 92610; 93005; 93010; 93306; 93880; 94640; 94664; 94760; 94761; 96372; 97162; 99285-25; A9270; G0378; J1650